=== PATIENT | male | born 1950 | race Caucasian/White ===

== ENCOUNTER → 2018-09-29 | Outpatient (CLI) | payer MEDICARE ==
--- NOTE | 2018-09-29 13:01 | BD ---
EXAMINATION TYPE: Axial Bone Density DATE OF EXAM: 09/29/2018 COMPARISON: NONE CLINICAL HISTORY: M [age] Height: 5 FT 5 1/2 IN Weight: 161 FRAX RISK QUESTIONS: RISK FACTORS HISTORY OF: Family History of Osteoporosis: YES Active: YES Lost more than 2 inches in height since high school: YES MEDICATIONS: Additional Medications: VICODIN,XANAX NEEDED, ALEVE Additional History: SEVERE SCOLIOSIS EXAM MEASUREMENTS: Bone mineral densitometry was performed using the [employer] System. Bone mineral density as measured about the Lumbar spine is: ----- L1-L4(G/cm2): 1.806 T Score Values are as follows: ----- L2: 3.2 ----- L3: 6.6 ----- L4: 7.2 ----- L1-L4: 5.2 BASELINE Bone mineral density about the R hip (g/cm2): 1.062 Bone mineral density about the L hip (g/cm2): 1.059 T Score values are as follows: -----R Neck: 0.2 -----L Neck: 0.2 -----R Total: 2.3 -----L Total: 2.1 BASELINE IMPRESSION: Normal (Values between +1 and -1 indicate normal bone mass). Consider repeating this study in 5 year s or sooner if there is some new clinical indication. NOTE: T-SCORE=SD OF THE YOUNG ADULT MEAN.
== END | disposition home or self-care (01) ==
LOC: RADBDWWP 10:39
PROVIDERS: ATTEND Family Medicine
DX: M89.9 Disorder of bone, unspecified (principal)
CPT/HCPCS: 77080

== ENCOUNTER 2019-10-24 09:55 | Emergency (ER) | payer MEDICARE ==
[2019-10-24 10:01] VITALS: TEMP 98.8
[2019-10-24 10:14] VITALS: RESP 18
--- NOTE | 2019-10-24 10:25 | ED ---
General Adult HPI <Rick Ceron - Last Filed: 10/24/19 12:15> - General Source: patient, RN notes reviewed, old records reviewed Mode of arrival: ambulatory Limitations: no limitations <DillonYojana - Last Filed: 10/24/19 12:29> - General Chief complaint: Shortness of Breath Stated complaint: SOB,sweating,shivers Time Seen by Provider: 10/24/19 10:04 - History of Present Illness Initial comments: Patient is a 69-year-old male who presents emergency department today for evaluation for concern for shortness of breath and more progressive over the past 2 days. Patient denies any associated chest pain. He states that he has a hard time laying flat without feeling very short of breath and states he feels better if he lays on his stomach or is up walking. Patient states that he has the prior history of smoking many years ago and quit over 30 years ago. He states that he has had no significant change in his bowel movements and reports an episode of nausea today. 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 He states he tries to her mask and protect from Covid 19 and notes that he has not been exposed to any positive covid 19 contacts that he is aware of with. Patient states that he's had no fevers associated with symptoms. Patient reportedly did a video conference with his PCP today who sent here for further evaluation to rule out pneumonia. Patient denies any recorded fevers but does have some sweating episodes and shivering. (Yojana Carranza) - Related Data Home Medications Medication Instructions Recorded Confirmed Ascorbic Acid [Vitamin C] 500 mg PO QID 09/05/14 10/24/19 Citalopram Hydrobromide 10 mg PO DAILY 10/24/19 10/24/19 [Citalopram HBr] Gabapentin 600 mg PO BID 10/24/19 10/24/19 Ibuprofen [Advil] 200 mg PO Q6HR PRN 10/24/19 10/24/19 Omeprazole [PriLOSEC] 20 mg PO HS 10/24/19 10/24/19 traZODone HCL 50 - 100 mg PO HS PRN 10/24/19 10/24/19 Allergies Allergy/AdvReac Type Severity Reaction Status Date / Time No Known Allergies Allergy Verified 10/24/19 11:15 Review of Systems ROS Other: All systems not noted in ROS Statement are negative. <Rick Ceron - Last Filed: 10/24/19 12:15> ROS Other: All systems not noted in ROS Statement are negative. <Yojana Carranza - Last Filed: 10/24/19 12:29> ROS Statement: Those systems with pertinent positive or pertinent negative responses have been documented in the HPI. Past Medical History Past Medical History: Hyperlipidemia, Hypertension, Osteoarthritis (OA) Additional Past Medical History / Comment(s): insomnia History of Any Multi-Drug Resistant Organisms: None Reported Additional Past Surgical History / Comment(s): left knee, Past Psychological History: No Psychological Hx Reported Smoking Status: Former smoker Past Alcohol Use History: None Reported Past Drug Use History: Marijuana <Yojana Carranza - Last Filed: 10/24/19 12:29> General Exam Limitations: no limitations General appearance: alert, in no apparent distress Head exam: Present: atraumatic Eye exam: Present: normal appearance, PERRL, EOMI. Absent: scleral icterus, conjunctival injection, periorbital swelling ENT exam: Present: normal exam, mucous membranes moist Neck exam: Present: normal inspection. Absent: tenderness, meningismus, lymphadenopathy Respiratory exam: Present: normal lung sounds bilaterally. Absent: respiratory distress, wheezes, rales, rhonchi, stridor Cardiovascular Exam: Present: regular rate, normal rhythm, normal heart sounds. Absent: systolic murmur, diastolic murmur, rubs, gallop, clicks GI/Abdominal exam: Present: soft, normal bowel sounds. Absent: distended, tenderness, guarding, rebound, rigid Extremities exam: Present: normal inspection, full ROM, normal capillary refill. Absent: tenderness, pedal edema, joint swelling, calf tenderness Back exam: Present: normal inspection Neurological exam: Present: alert, oriented X3, CN II-XII intact Psychiatric exam: Present: normal affect, normal mood Skin exam: Present: warm, dry, intact, normal color. Absent: rash <Yojana Carranza - Last Filed: 10/24/19 12:29> - General Exam Comments Initial Comments: 69-year-old male. history somewhat short of breath. (Yojana Carranza) Course <Rick Ceron - Last Filed: 10/24/19 12:15> Vital Signs 10/24/19 10/24/19 10/24/19 09:58 10:12 10:25 Temperature 98.8 F Pulse Rate 70 Respiratory 20 18 Rate Blood Pressure 168/89 O2 Sat by Pulse 97 98 Oximetry 10/24/19 10/24/19 10/24/19 11:52 12:07 12:16 Temperature Pulse Rate 61 58 L 64 Respiratory 18 Rate Blood Pressure 162/80 O2 Sat by Pulse 95 Oximetry - Reevaluation(s) Reevaluation #1: 10/24/19 12:15 I did evaluate this patient, with 3 days of dyspnea, rule out pneumonia, he states his symptoms have significantly improved. He is resting comfortably with stable vitals. His workup reveals normal CBC, normal CMP, negative troponin, negative d-dimer, negative BNP, chest x-ray clear. Patient is eager for discharge. (Rick Ceron) EKG Findings - EKG Comments: EKG Findings:: EKG shows normal sinus rhythm and normal EKG. Ventricular rate of 65 bpm. Vitals 150 ms. QRS duration is 102 ms. QT QTc 46/422 ms <Yojana Carranza - Last Filed: 10/24/19 12:29> Medical Decision Making - Lab Data Result diagrams: 10/24/19 10:41 10/24/19 10:41 <Rick Ceron - Last Filed: 10/24/19 12:15> - Lab Data Result diagrams: 10/24/19 10:41 10/24/19 10:41 <Yojana Carranza - Last Filed: 10/24/19 12:29> - Lab Data Lab Results 10/24/19 10/24/19 10/24/19 Range/Units 10:41 10:41 10:41 WBC 6.1 (3.8-10.6) k/uL RBC 4.37 (4.30-5.90) m/uL Hgb 13.7 (13.0-17.5) gm/dL Hct 40.8 (39.0-53.0) % MCV 93.5 (80.0-100.0) fL MCH 31.4 (25.0-35.0) pg MCHC 33.6 (31.0-37.0) g/dL RDW 12.6 (11.5-15.5) % Plt Count 214 (150-450) k/uL Neutrophils % 72 % Lymphocytes % 21 % Monocytes % 5 % Eosinophils % 1 % Basophils % 0 % Neutrophils # 4.4 (1.3-7.7) k/uL Lymphocytes # 1.3 (1.0-4.8) k/uL Monocytes # 0.3 (0-1.0) k/uL Eosinophils # 0.1 (0-0.7) k/uL Basophils # 0.0 (0-0.2) k/uL PT 10.2 (9.0-12.0) sec INR 1.0 (<1.2) APTT 24.6 (22.0-30.0) sec D-Dimer 0.48 (<0.60) mg/L FEU Sodium 136 L (137-145) mmol/L Potassium 3.9 (3.5-5.1) mmol/L Chloride 106 (98-107) mmol/L Carbon Dioxide 23 (22-30) mmol/L Anion Gap 7 mmol/L BUN 14 (9-20) mg/dL Creatinine 0.73 (0.66-1.25) mg/dL Est GFR (CKD-EPI)AfAm >90 (>60 ml/min/1.73 sqM) Est GFR (CKD-EPI)NonAf >90 (>60 ml/min/1.73 sqM) Glucose 112 H (74-99) mg/dL Plasma Lactic Acid Elfego (0.7-2.0) mmol/L Calcium 9.1 (8.4-10.2) mg/dL Magnesium 1.9 (1.6-2.3) mg/dL Total Bilirubin 0.5 (0.2-1.3) mg/dL AST 29 (17-59) U/L ALT 28 (4-49) U/L Alkaline Phosphatase 67 (38-126) U/L Lactate Dehydrogenase 546 (313-618) U/L Troponin I (0.000-0.034) ng/mL C-Reactive Protein <5.0 (<10.0) mg/L NT-Pro-B Natriuret Pep pg/mL Total Protein 6.5 (6.3-8.2) g/dL Albumin 4.1 (3.5-5.0) g/dL 10/24/19 10/24/19 10/24/19 Range/Units 10:41 10:41 10:41 WBC (3.8-10.6) k/uL RBC (4.30-5.90) m/uL Hgb (13.0-17.5) gm/dL Hct (39.0-53.0) % MCV (80.0-100.0) fL MCH (25.0-35.0) pg MCHC (31.0-37.0) g/dL RDW (11.5-15.5) % Plt Count (150-450) k/uL Neutrophils % % Lymphocytes % % Monocytes % % Eosinophils % % Basophils % % Neutrophils # (1.3-7.7) k/uL Lymphocytes # (1.0-4.8) k/uL Monocytes # (0-1.0) k/uL Eosinophils # (0-0.7) k/uL Basophils # (0-0.2) k/uL PT (9.0-12.0) sec INR (<1.2) APTT (22.0-30.0) sec D-Dimer (<0.60) mg/L FEU Sodium (137-145) mmol/L Potassium (3.5-5.1) mmol/L Chloride (98-107) mmol/L Carbon Dioxide (22-30) mmol/L Anion Gap mmol/L BUN (9-20) mg/dL Creatinine (0.66-1.25) mg/dL Est GFR (CKD-EPI)AfAm (>60 ml/min/1.73 sqM) Est GFR (CKD-EPI)NonAf (>60 ml/min/1.73 sqM) Glucose (74-99) mg/dL Plasma Lactic Acid Elfego 0.9 (0.7-2.0) mmol/L Calcium (8.4-10.2) mg/dL Magnesium (1.6-2.3) mg/dL Total Bilirubin (0.2-1.3) mg/dL AST (17-59) U/L ALT (4-49) U/L Alkaline Phosphatase (38-126) U/L Lactate Dehydrogenase (313-618) U/L Troponin I <0.012 (0.000-0.034) ng/mL C-Reactive Protein (<10.0) mg/L NT-Pro-B Natriuret Pep 314 pg/mL Total Protein (6.3-8.2) g/dL Albumin (3.5-5.0) g/dL Disposition <Rick Ceron - Last Filed: 10/24/19 12:15> Is patient prescribed a controlled substance at d/c from ED?: No Time of Disposition: 12:29 <Yojana Carranza - Last Filed: 10/24/19 12:29> Clinical Impression: Shortness of breath Disposition: HOME SELF-CARE Condition: Good Instructions (If sedation given, give patient instructions): Dyspnea (ED) Additional Instructions: Patient does have close follow-up with primary care physician within the next couple of days. Your coid swab will be resulted to you if positive within the next 1-2 days. Return to the emergency department if any alarming signs or symptoms occur. Referrals: Mayur Aguiar III, MD [Primary Care Provider] - 1-2 days
[2019-10-24 10:56] LABS: Basophils % (A) 0 %; Eosinophils # (A) 0.1 k/uL (0-0.7); Eosinophils % (A) 1 %; HCT 40.8 % (39.0-53.0); HGB 13.7 gm/dL (13.0-17.5); Lymphocytes # (A) 1.3 k/uL (1.0-4.8); Lymphocytes % (A) 21 %; MCH 31.4 pg (25.0-35.0); MCHC 33.6 g/dL (31.0-37.0); MCV 93.5 fL (80.0-100.0); Mean Platelet Volume 9.1; Monocytes # (A) 0.3 k/uL (0-1.0); Monocytes % (A) 5 %; Neutrophils # (A) 4.4 k/uL (1.3-7.7); Neutrophils % (A) 72 %; Platelet Count 214 k/uL (150-450); RBC 4.37 m/uL (4.30-5.90); RDW 12.6 % (11.5-15.5); WBC 6.1 k/uL (3.8-10.6)
--- NOTE | 2019-10-24 11:03 | XR ---
EXAMINATION TYPE: XR chest 2V DATE OF EXAM: 10/24/2019 COMPARISON: NONE HISTORY: Shortness of breath TECHNIQUE: Frontal and lateral views of the chest are obtained. FINDINGS: Scattered senescent parenchymal changes noted. Hyperinflation compatible with COPD. No evidence for infiltrate. No evidence for atelectasis. Heart size is stable. Mediastinal structures are stable and grossly unremarkable. No evidence for hilar prominence. Degenerative changes dorsal spine. IMPRESSION: 1. No evidence for acute pulmonary disease.
[2019-10-24 11:07] LABS: ALT 28 U/L (4-49); AST 29 U/L (17-59); African American GFR (CKD) >90 (>60 ml/min/1.73 sqM); Albumin 4.1 g/dL (3.5-5.0); Alkaline Phosphatase 67 U/L (38-126); Anion Gap 7 mmol/L; Blood Urea Nitrogen 14 mg/dL (9-20); C Reactive Protein <5.0 mg/L (<10.0); Calcium 9.1 mg/dL (8.4-10.2); Carbon Dioxide 23 mmol/L (22-30); Chloride 106 mmol/L (98-107); Glucose 112 mg/dL (74-99); LDH 546 U/L (313-618); Magnesium 1.9 mg/dL (1.6-2.3); Non-African American GFR(CKD) >90 (>60 ml/min/1.73 sqM); Potassium 3.9 mmol/L (3.5-5.1); Sodium 136 mmol/L (137-145); Total Bilirubin 0.5 mg/dL (0.2-1.3); Total Protein 6.5 g/dL (6.3-8.2)
[2019-10-24 11:11] LABS: D-Dimer 0.48 mg/L FEU (<0.60); Partial Thromboplastin Time 24.6 sec (22.0-30.0); Prothrombin Time 10.2 sec (9.0-12.0)
[2019-10-24] MEDS ORDERED: IPRATROPIUM-ALBUTEROL 3 ML NEB INHALATION STA (11:58)
[2019-10-24 13:20] VITALS: BP 163/70; PULSE 92
[2019-10-24 17:05] LABS: Ferritin 195.4 ng/mL (22.0-322.0)
== END 2019-10-24 13:20 | disposition home or self-care (01) ==
LOC: EC 09:55
DX: R06.02 Shortness of breath (principal); R61 Generalized hyperhidrosis; R11.0 Nausea; I10 Essential (primary) hypertension; Z79.899 Other long term (current) drug therapy; Z87.891 Personal history of nicotine dependence
CPT/HCPCS: 36415; 94640; 93005; 85379; 83880; 80053; 82728; 83605; 83615; 83735; 84484; 85025; 85610; 85730; 86140; 87040; 84145; 71046; 99285; U0003

== ENCOUNTER 2019-11-15 11:34 | Day surgery (SDC) | payer MEDICARE ==
[2019-11-09 13:39] VITALS: BMI 26.6
[~2019-11-15 11:34] MED LIST: LACTATED RINGERS 1,000 ML IV SCH; LIDOCAINE 1% (10MG/ML) FOR IV START INTRADERMA PRN; MOXIFLOXACIN HCL 0.5% DROPS 3 ML BTL OP ONE; TETRACAINE 0.5% OPHTH (PF) DROPS 4 ML BTL OP ONE; TIMOLOL 0.5% OPHTH DROPS 5 ML BTL OP ONE
[2019-11-15 11:49] VITALS: RESP 16; TEMP 97.4
[2019-11-15] MEDS: PHENYLEPHRINE 2.5% OPHTH DRP 2ML OP NR ×3 (11:55→12:07)
[2019-11-15] MEDS: CYCLOPENTOLATE 1% OPHTH SOLN 2 ML BTL OP ONE ×3 (11:58→12:10)
[2019-11-15] MEDS ORDERED: MIDAZOLAM 2 MG/2 ML VIAL ONE (12:33)
[2019-11-15] MEDS ORDERED: fentaNYL (PF) 50 MCG/ML 2 ML AMP ONE (12:33)
[2019-11-15] MEDS ORDERED: HYALURONATE SODIUM INTRAOCULAR 1 EACH SYRINGE (12MG/ML) INTRAOCULA ONE (12:52)
[2019-11-15] MEDS ORDERED: BALANCED SALT IRRIG SOLN COMB2 15 ML IRRIG.SOLN INTRAOCULA ONE (12:52)
[2019-11-15] MEDS ORDERED: LIDOCAINE 1% (PF) 10MG/ML VIAL SQ ONE (12:53)
[2019-11-15] MEDS ORDERED: EPINEPHrine (PF) 1 MG/ML AMP SQ ONE (12:53)
[2019-11-15] MEDS ORDERED: EPINEPHrine (PF) 0.3 ML in BALANCED SALT IRRIG SOLN COMB2 500 ML IRRIGATION ONE (12:54)
--- NOTE | 2019-11-15 13:06 | P.OP ---
Date of Procedure: 11/15/19 Preoperative Diagnosis: NS & CS Postoperative Diagnosis: same Procedure(s) Performed: PIOL, OD Implants: MX60 10.0 Anesthesia: MAC Surgeon: Amado Banda Pathology: none sent Condition: stable Disposition: same day Indications for Procedure: blurry vision Operative Findings: no complications
[2019-11-15 13:19] VITALS: BP 140/66; PULSE 56
--- NOTE | 2019-11-15 23:58 | OP ---
OPERATIVE REPORT DATE OF SURGERY: November 15, 2019 SURGEON: Dr. Amado Banda PREOPERATIVE DIAGNOSES: Nuclear sclerosis, cortical sclerosis, posterior subcapsular cataract. POSTOPERATIVE DIAGNOSIS: Nuclear sclerosis, cortical sclerosis, posterior subcapsular cataract. OPERATION: Phacoemulsification of cataract and intraocular lens implant of the right eye. ESTIMATED BLOOD LOSS: Zero. SPECIMEN TAKEN: None. NARRATIVE: After obtaining the appropriate consent, the patient was brought to the operating room where the patient was placed under cardiac monitoring and prepped and draped in the usual sterile manner. At the 11 o'clock position a 15 degree super sharp blade was used to create a paracentesis followed by instillation of 1% Xylocaine MPF 50:50 mix with BSS into the anterior chamber. This was followed by Amvisc to stabilize the anterior chamber. At the 9 o'clock position a self-sealing corneal flap incision was created using 2.8 mm reid keratome. A cystotome was used to initiate a continuous tear capsulorrhexis which was completed with the Utrata forceps. A Binkhorst cannula was used to hydrodissect the lens nucleus followed by hydrodelineation. Phacoemulsification of the lens was performed utilizing phaco chop in 16.16 seconds at 18% power. The remaining cortical material was removed using the irrigation aspiration mode followed by additional 1% Xylocaine MPF into the anterior chamber followed by viscoelastic to stabilize the capsular bag. A Bausch and Lomb MX60E 10.0 diopter posterior chamber lens was placed into the capsular bag without difficulty. The remaining viscoelastic material was removed from the anterior chamber with the irrigation/aspiration. Balanced salt solution was used to normalize the intraocular pressure. The incision was checked for watertight integrity. The patient then received two drops of 0.5% timolol followed by two drops Vigamox, was lightly patched and shielded in the usual manner. There were no complications from the procedure. The patient tolerated the procedure well and was returned to recovery in good condition. MMODL / IJN: [id number] /
== END 2019-11-15 13:37 | disposition home or self-care (01) ==
LOC: OR 11:34
PROVIDERS: ATTEND Ophthalmology
DX: H25.13 Age-related nuclear cataract, bilateral (principal); H25.041 Posterior subcapsular polar age-related cataract, right eye; H25.12 Age-related nuclear cataract, left eye; H25.013 Cortical age-related cataract, bilateral; H18.603 Keratoconus, unspecified, bilateral; H52.213 Irregular astigmatism, bilateral; H00.026 Hordeolum internum left eye, unspecified eyelid; H00.023 Hordeolum internum right eye, unspecified eyelid; H52.13 Myopia, bilateral; H52.4 Presbyopia; Z85.828 Personal history of other malignant neoplasm of skin; Z98.890 Other specified postprocedural states; M19.90 Unspecified osteoarthritis, unspecified site; K21.9 Gastro-esophageal reflux disease without esophagitis; F41.9 Anxiety disorder, unspecified; H93.19 Tinnitus, unspecified ear; R41.3 Other amnesia; Z82.61 Family history of arthritis; Z81.8 Family history of other mental and behavioral disorders; Z79.899 Other long term (current) drug therapy; Z79.1 Long term (current) use of non-steroidal anti-inflammatories (NSAID)
CPT/HCPCS: 66984; C1780; J2250; J0171; J3010; J2001

== ENCOUNTER 2019-11-29 07:57 | Emergency (ER) | payer MEDICARE ==
[2019-11-29] MEDS ORDERED: SODIUM CHLORIDE 0.9% 1,000 ML IV STA (08:04)
[2019-11-29] MEDS ORDERED: LORazepam 2 MG/ML INJ IV STA (08:05)
[2019-11-29 08:07] VITALS: RESP 18
--- NOTE | 2019-11-29 08:07 | ED ---
General Adult HPI - General Stated complaint: Nausea and vomiting Time Seen by Provider: 11/29/19 07:59 Source: patient, RN notes reviewed, old records reviewed - History of Present Illness Initial comments: This is a 69-year-old male who presents emergency department stating that he woke up at 4 AM very nauseated. Patient states she started vomiting at about 6:00 and then he called EMS to bring to the hospital. Patient denies any abdominal pain. Patient denies diarrhea. Patient denies any fever chills. Patient states he got Zofran in the ambulance but still has a little nausea remaining. According to EMS the patient was hyperventilating and very anxious. Patient continues to be very anxious and is still breathing slightly rapidly. Patient denies any chest pain difficulty breathing shortness of breath. Patient denies any dysuria hematuria urinary frequency. Patient denies any blood in the vomitus or stool. - Related Data Home Medications Medication Instructions Recorded Confirmed Ascorbic Acid [Vitamin C] 500 mg PO QID 09/05/14 11/15/19 Citalopram Hydrobromide 10 mg PO DAILY 10/24/19 11/15/19 [Citalopram HBr] Gabapentin 600 mg PO BID 10/24/19 11/15/19 Omeprazole [PriLOSEC] 20 mg PO HS 10/24/19 11/15/19 traZODone HCL 50 - 100 mg PO HS PRN 10/24/19 11/15/19 Allergies Allergy/AdvReac Type Severity Reaction Status Date / Time No Known Allergies Allergy Verified 11/15/19 11:46 Review of Systems ROS Statement: Those systems with pertinent positive or pertinent negative responses have been documented in the HPI. ROS Other: All systems not noted in ROS Statement are negative. Past Medical History Past Medical History: Hyperlipidemia, Osteoarthritis (OA) Additional Past Medical History / Comment(s): insomnia History of Any Multi-Drug Resistant Organisms: None Reported Past Surgical History: Orthopedic Surgery Additional Past Surgical History / Comment(s): bilateral ACL repair. left kidney removed and donated Past Anesthesia/Blood Transfusion Reactions: No Reported Reaction Smoking Status: Former smoker - Past Family History Mother Family Medical History: Osteoarthritis (OA), Rheumatoid Arthritis (RA) General Exam - General Exam Comments Initial Comments: GENERAL: Patient is well-developed and well-nourished. Patient is nontoxic and well- hydrated and is in mild distress. ENT: Neck is soft and supple. No significant lymphadenopathy is noted. Oropharynx is clear. Moist mucous membranes. Neck has full range of motion without eliciting any pain. EYES: The sclera were anicteric and conjunctiva were pink and moist. Extraocular movements were intact and pupils were equal round and reactive to light. Eyelids were unremarkable. PULMONARY: Unlabored respirations. Good breath sounds bilaterally. No audible rales rhonchi or wheezing was noted. CARDIOVASCULAR: There is a regular rate and rhythm without any murmurs gallops or rubs. ABDOMEN: Soft and nontender with normal bowel sounds. No palpable organomegaly was noted. There is no palpable pulsatile mass. SKIN: Skin is clear with no lesions or rashes and otherwise unremarkable. NEUROLOGIC: Patient is alert and oriented x3. Cranial nerves II through XII are grossly intact. Motor and sensory are also intact. Normal speech, volume and content. Symmetrical smile. MUSCULOSKELETAL: Normal extremities with adequate strength and full range of motion. No lower extremity swelling or edema. No calf tenderness. LYMPHATICS: No significant lymphadenopathy is noted PSYCHIATRIC: Patient is mildly anxious Course Vital Signs 11/29/19 11/29/19 11/29/19 08:02 08:07 09:07 Temperature 97.6 F Pulse Rate 60 61 Respiratory 18 18 18 Rate Blood Pressure 191/101 160/91 O2 Sat by Pulse 100 99 Oximetry 11/29/19 11/29/19 10:00 11:03 Temperature 97.7 F Pulse Rate 68 73 Respiratory 18 18 Rate Blood Pressure 161/73 153/82 O2 Sat by Pulse 98 98 Oximetry Medical Decision Making - Medical Decision Making I went back in the room to reevaluate the patient after received a liter of fluid. Patient stated he felt considerably better. Patient has no nausea at this time he denies any abdominal pain - Lab Data Result diagrams: 11/29/19 08:36 11/29/19 08:36 Lab Results 11/29/19 11/29/19 11/29/19 Range/Units 08:36 08:36 09:53 WBC 8.5 (3.8-10.6) k/uL RBC 4.38 (4.30-5.90) m/uL Hgb 13.7 (13.0-17.5) gm/dL Hct 41.4 (39.0-53.0) % MCV 94.4 (80.0-100.0) fL MCH 31.2 (25.0-35.0) pg MCHC 33.0 (31.0-37.0) g/dL RDW 12.9 (11.5-15.5) % Plt Count 187 (150-450) k/uL Neutrophils % 83 % Lymphocytes % 10 % Monocytes % 5 % Eosinophils % 1 % Basophils % 1 % Neutrophils # 7.1 (1.3-7.7) k/uL Lymphocytes # 0.8 L (1.0-4.8) k/uL Monocytes # 0.4 (0-1.0) k/uL Eosinophils # 0.0 (0-0.7) k/uL Basophils # 0.1 (0-0.2) k/uL Sodium 137 (137-145) mmol/L Potassium 4.2 (3.5-5.1) mmol/L Chloride 106 (98-107) mmol/L Carbon Dioxide 21 L (22-30) mmol/L Anion Gap 10 mmol/L BUN 19 (9-20) mg/dL Creatinine 0.81 (0.66-1.25) mg/dL Est GFR (CKD-EPI)AfAm >90 (>60 ml/min/1.73 sqM) Est GFR (CKD-EPI)NonAf 89 (>60 ml/min/1.73 sqM) Glucose 135 H (74-99) mg/dL Calcium 9.5 (8.4-10.2) mg/dL Total Bilirubin 0.9 (0.2-1.3) mg/dL AST 41 (17-59) U/L ALT 25 (4-49) U/L Alkaline Phosphatase 78 (38-126) U/L Total Protein 7.1 (6.3-8.2) g/dL Albumin 4.5 (3.5-5.0) g/dL Amylase 71 (30-110) U/L Lipase 43 (23-300) U/L Urine Color Yellow Urine Appearance Clear (Clear) Urine pH 8.0 (5.0-8.0) Ur Specific Stone 1.017 (1.001-1.035) Urine Protein Negative (Negative) Urine Glucose (UA) Negative (Negative) Urine Ketones 1+ H (Negative) Urine Blood Negative (Negative) Urine Nitrite Negative (Negative) Urine Bilirubin Negative (Negative) Urine Urobilinogen <2.0 (<2.0) mg/dL Ur Leukocyte Esterase Negative (Negative) Disposition Clinical Impression: Acute vomiting Disposition: HOME SELF-CARE Instructions (If sedation given, give patient instructions): Acute Nausea and Vomiting (ED) Is patient prescribed a controlled substance at d/c from ED?: No Referrals: Mayur Aguiar III, MD [Primary Care Provider] - 1-2 days Time of Disposition: 10:59
[2019-11-29 09:00] LABS: Basophils # (A) 0.1 k/uL (0-0.2); Basophils % (A) 1 %; Eosinophils % (A) 1 %; HCT 41.4 % (39.0-53.0); HGB 13.7 gm/dL (13.0-17.5); Lymphocytes # (A) 0.8 k/uL (1.0-4.8); Lymphocytes % (A) 10 %; MCH 31.2 pg (25.0-35.0); MCV 94.4 fL (80.0-100.0); Mean Platelet Volume 10.2; Monocytes # (A) 0.4 k/uL (0-1.0); Monocytes % (A) 5 %; Neutrophils # (A) 7.1 k/uL (1.3-7.7); Neutrophils % (A) 83 %; Platelet Count 187 k/uL (150-450); RBC 4.38 m/uL (4.30-5.90); RDW 12.9 % (11.5-15.5); WBC 8.5 k/uL (3.8-10.6)
[2019-11-29 09:10] LABS: ALT 25 U/L (4-49); AST 41 U/L (17-59); African American GFR (CKD) >90 (>60 ml/min/1.73 sqM); Albumin 4.5 g/dL (3.5-5.0); Alkaline Phosphatase 78 U/L (38-126); Amylase 71 U/L (30-110); Anion Gap 10 mmol/L; Blood Urea Nitrogen 19 mg/dL (9-20); Calcium 9.5 mg/dL (8.4-10.2); Carbon Dioxide 21 mmol/L (22-30); Chloride 106 mmol/L (98-107); Glucose 135 mg/dL (74-99); Non-African American GFR(CKD) 89 (>60 ml/min/1.73 sqM); Sodium 137 mmol/L (137-145); Total Bilirubin 0.9 mg/dL (0.2-1.3); Total Protein 7.1 g/dL (6.3-8.2)
[2019-11-29 09:11] LABS: Potassium 4.2 mmol/L (3.5-5.1)
[2019-11-29 10:43] LABS: Appearance,Urine Clear (Clear); Bilirubin,Urine Negative (Negative); Blood,Urine Negative (Negative); Color,Urine Yellow; Glucose,Urine (UA) Negative (Negative); Ketones,Urine 1+ (Negative); Leukocyte Esterase,Urine Negative (Negative); Nitrite,Urine Negative (Negative); Protein,Urine Negative (Negative); Specific Gravity,Urine 1.017 (1.001-1.035); Urobilinogen,Urine <2.0 mg/dL (<2.0)
[2019-11-29] MEDS ORDERED: ONDANSETRON 4 MG ODT STARTER PACK 2 TAB BTL PO STA (10:59)
[2019-11-29 11:04] VITALS: BP 153/82; PULSE 73; TEMP 97.7
== END 2019-11-29 11:09 | disposition home or self-care (01) ==
LOC: EC 07:57
DX: R11.10 Vomiting, unspecified (principal); Z79.899 Other long term (current) drug therapy; Z87.891 Personal history of nicotine dependence
CPT/HCPCS: 36415; 80053; 82150; 83690; 85025; 81003; 99284; 96374; J2060; S0119

== ENCOUNTER 2019-12-13 06:58 | Day surgery (SDC) | payer MEDICARE ==
[2019-12-12 10:31] VITALS: BMI 26.6
[~2019-12-13 06:58] MED LIST changes: +DEXAMETHASONE SOD PHOSPHATE 10 MG/ML 1 ML VIAL IV ONE; -LIDOCAINE 1% (10MG/ML) FOR IV START INTRADERMA PRN; +ONDANSETRON 4 MG/2 ML VIAL IVP ONE; +fentaNYL (PF) 50 MCG/ML 2 ML AMP IV PRN; +fentaNYL (PF) 50 MCG/ML 2 ML AMP IVP PRN
[2019-12-13 07:26] VITALS: TEMP 97.4
[2019-12-13] MEDS: CYCLOPENTOLATE 1% OPHTH SOLN 2 ML BTL OP ONE ×3 (07:35→07:51)
[2019-12-13] MEDS: PHENYLEPHRINE 2.5% OPHTH DRP 2ML OP NR ×3 (07:38→07:54)
[2019-12-13] MEDS ORDERED: MIDAZOLAM 2 MG/2 ML VIAL ONE (08:08)
[2019-12-13] MEDS ORDERED: fentaNYL (PF) 50 MCG/ML 2 ML AMP ONE (08:08)
[2019-12-13] MEDS ORDERED: EPINEPHrine (PF) 0.3 ML in BALANCED SALT IRRIG SOLN COMB2 500 ML IRRIGATION ONE (08:09)
[2019-12-13] MEDS ORDERED: LIDOCAINE 1% (PF) 10MG/ML VIAL MISCELLANE ONE (08:18)
[2019-12-13] MEDS ORDERED: HYALURONATE SODIUM INTRAOCULAR 1 EACH SYRINGE (12MG/ML) INTRAOCULA ONE (08:18)
[2019-12-13] MEDS ORDERED: BALANCED SALT IRRIG SOLN COMB2 15 ML IRRIG.SOLN INTRAOCULA ONE (08:18)
--- NOTE | 2019-12-13 08:35 | P.OP ---
Date of Procedure: 12/13/19 Preoperative Diagnosis: NS & CS Postoperative Diagnosis: same Procedure(s) Performed: PIOL, OS Implants: [id number] 8.0 Anesthesia: MAC Surgeon: Amado Banda Pathology: none sent Condition: stable Disposition: same day Indications for Procedure: blurry vision Operative Findings: no complications
[2019-12-13 08:51] VITALS: BP 152/80; PULSE 59; RESP 16
--- NOTE | 2019-12-13 23:16 | OP ---
OPERATIVE REPORT DATE OF SURGERY: 12/13/2019 PROCEDURE: Phacoemulsification of cataract with intraocular lens implant of the left eye. PREOPERATIVE DIAGNOSIS: Nuclear sclerosis and cortical sclerosis. POSTOPERATIVE DIAGNOSIS: Nuclear sclerosis, cortical sclerosis and persistent miosis suggestive of floppy iris. SURGEON: Dr. Amado Banda. ANESTHESIA: MAC. ESTIMATED BLOOD LOSS: None. SPECIMEN TAKEN: None. NARRATIVE: After obtaining the appropriate consent, the patient was brought to the operating room. There he was placed under cardiac monitoring and prepped and draped in the usual sterile manner. He was approached from his left temporal side, and at the 11 o'clock position an MVR blade was used to create a paracentesis port. Through this opening 1% Xylocaine MPF 50:50 mix with balanced salt solution was injected into the anterior chamber. This was followed by instillation of Amvisc. At the 9 o'clock position, a 2.5 mm keratome was used to create a self-sealing corneal flap incision. It was evident at this stage of the game that the pupil was not maintaining proper dilation and there was some indication of laxity of the iris stroma. Therefore a 7 mm Malyugin Ring was chosen and inserted on the pupillary margin. This was followed by a cystotome, which was used to begin a continuous tear capsulorrhexis which was then completed using the Utrata forceps. Hydrodissection and hydrodelineation of the lens was accomplished with balanced salt solution. Phacoemulsification lens utilizing phaco chop was accomplished in 15.44 seconds at 14% power. Additional Xylocaine MPF was instilled into the anterior chamber. This was followed by removal of the remaining cortex under irrigation and aspiration along with careful polishing of the posterior capsule in capsule vacuum mode. Additional Amvisc was then used to stabilize the capsular bag and a Bausch & Lomb Kevin 60E 8.00 diopter posterior chamber intraocular lens was then injected into the capsular bag without difficulty. The remaining viscoelastic was removed from in and around the intraocular lens followed by a small amount of viscoelastic to deepen the anterior chamber and allow for removal of the Malyugin Ring. Once this was accomplished, the remaining viscoelastic was removed from the anterior chamber without difficulty under irrigation and aspiration. The eye was then brought to normal intraocular pressure through the paracentesis port, confirming all incisions were watertight. He then received 2 drops of 0.5% Timolol followed by 2 drops of moxifloxacin. He was then lightly patched and shielded in the usual manner. There were no complications from the procedure. He tolerated the procedure well and was returned to [facility] in good condition. RAMON / AXEL: [id number] /
== END 2019-12-13 09:05 | disposition home or self-care (01) ==
LOC: OR 06:58
PROVIDERS: ATTEND Ophthalmology
DX: H25.12 Age-related nuclear cataract, left eye (principal); H25.012 Cortical age-related cataract, left eye; H18.603 Keratoconus, unspecified, bilateral; H00.026 Hordeolum internum left eye, unspecified eyelid; H00.023 Hordeolum internum right eye, unspecified eyelid; H52.13 Myopia, bilateral; H52.213 Irregular astigmatism, bilateral; H52.4 Presbyopia; Z98.41 Cataract extraction status, right eye; Z96.1 Presence of intraocular lens; K21.9 Gastro-esophageal reflux disease without esophagitis; F32.9 Major depressive disorder, single episode, unspecified; F41.9 Anxiety disorder, unspecified; H93.19 Tinnitus, unspecified ear; R41.3 Other amnesia; Z79.899 Other long term (current) drug therapy; Z90.5 Acquired absence of kidney; Z85.828 Personal history of other malignant neoplasm of skin; Z98.890 Other specified postprocedural states; Z97.3 Presence of spectacles and contact lenses; Z82.61 Family history of arthritis; Z81.8 Family history of other mental and behavioral disorders
CPT/HCPCS: 66982; C1780; J2250; J0171; J3010; J2001

== ENCOUNTER → 2020-05-10 | Outpatient (CLI) | payer MEDICARE ==
--- NOTE | 2020-05-11 04:24 | MR ---
EXAMINATION TYPE: MR cervical spine wo con DATE OF EXAM: 05/10/2020 COMPARISON: None HISTORY: Neck pain, BUE weakness Multiplanar multiecho imaging of the cervical spine was performed without contrast. Vertebra have normal alignment. There is degenerative disc space narrowing from C3 to C7. There is en dplate spur formation. There is significant narrowing of the spinal canal from C4 to C6. There is dm e flattening of the cord and the spinal canal measures 5 mm at C5-6. Spinal canal measures 8 mm at C3 -6-7. Spinal canal measures 5 mm at C4-5. The brainstem is intact. There is no compression fracture. There is no paraspinal mass. IMPRESSION: Multilevel spondylotic changes. There is moderately severe spinal stenosis at C4-5 and C5-6. No signi ficant edema seen in the cervical cord.
== END | disposition home or self-care (01) ==
LOC: RADMRIMAIN 21:13
PROVIDERS: ATTEND Orthopaedic Surgery Orthopaedic Surgery of the Spine
DX: M48.02 Spinal stenosis, cervical region (principal); M47.812 Spondylosis without myelopathy or radiculopathy, cervical region
CPT/HCPCS: 72141

== ENCOUNTER → 2020-09-02 | Outpatient (CLI) | payer MEDICARE ==
--- NOTE | 2020-09-03 07:19 | XR ---
EXAMINATION TYPE: XR cervical spine limited DATE OF EXAM: 09/02/2020 COMPARISON: MRI 05/10/2020 HISTORY: Postoperative cervical spine surgery TECHNIQUE: 4 view cervical spine FINDINGS: Vertebral body heights are preserved. There is straightening of the normal cervical lordosis. Posteri or fusion of C3-C5 is identified. The C screws may be extending into the C5-6 neural foramina. There is multilevel endplate sclerosis and osteophytosis with uncovertebral and facet arthropathy. No enlar gement of the prevertebral soft tissues. IMPRESSION: Posterior fusion of C4-C6 with multilevel disc disease and osteoarthritic changes of the cervical spi ne. The C5 screw tips may be extending into the neural foramina of C5-6. CT may be helpful for further ev aluation, if clinically warranted.
== END | disposition home or self-care (01) ==
LOC: RADXRMAIN 16:42
DX: M50.321 Other cervical disc degeneration at C4-C5 level (principal); M47.812 Spondylosis without myelopathy or radiculopathy, cervical region; Z98.1 Arthrodesis status
CPT/HCPCS: 72040

== ENCOUNTER → 2021-01-07 | Outpatient (CLI) | payer MEDICARE ==
--- NOTE | 2021-01-07 12:47 | US ---
EXAMINATION TYPE: US scrotum with doppler. DATE OF EXAM: 01/07/2021 COMPARISON: NONE CLINICAL HISTORY: 70-year-old male N50.89 other specified disorder of male,N53.11. TECHNIQUE: Grayscale and color Doppler Duplex imaging performed of the scrotum. FINDINGS: EXAM MEASUREMENTS: TESTICLES: Right Testicle: 4.9x3.2x2.8 cm Left Testicle: 5.3x3.2x2.7 cm Doppler performed to assess for testicular vascularity; good bilateral color flow and waveforms are s een. There is no evidence of testicular torsion. Normal homogeneous appearance of the testicles. No hyperemia. EPIDIDYMIS HEAD: Right Epididymis: 0.7 cm with an Epi body cyst 0.5x0.5x0.5cm Left Epididymis: 0.9 cm with an Epi head cyst 0.6x0.9x0.7cm Presence of hydroceles: No Presence of varicoceles: No IMPRESSION: A couple epididymal cysts measuring up to 9 mm on either side. Otherwise, unremarkable scrotal ultras ound.
== END | disposition home or self-care (01) ==
LOC: RADUSWWP 08:19
PROVIDERS: ATTEND Family Medicine
DX: N50.3 Cyst of epididymis (principal)
CPT/HCPCS: 76870; 93975

== ENCOUNTER 2021-09-05 07:49 | Day surgery (SDC) | payer MEDICARE ==
[2021-09-05] MEDS ORDERED: diazePAM 5 MG TAB PO PRN (08:35)
[2021-09-05 08:52] VITALS: TEMP 98.6
[2021-09-05 10:50] VITALS: RESP 16
[2021-09-05 11:41] VITALS: BP 145/76
[2021-09-05 12:04] VITALS: PULSE 48
--- NOTE | 2021-09-06 11:51 | FL ---
PROCEDURE: Lumbar puncture for cervical myelogram. DATE: 09/05/2021 CLINICAL HISTORY: 71-year-old male M25.511 PAIN RIGHT SHOULDER; M25.512 PAIN LEFT CRUZ COMPLICATIONS: Procedure discontinued due to vasovagal reaction. SEDATION: Oral Valium administered by nursing. The patient and the patient's vital signs were monitored by joanne perez independent radiology personnel. Patient was hypertensive at systolic 206 and reports a history of white coat syndrome. Patient was pl aced prone on the table and eventually dropped to 160's systolic. Decision was made to proceed with the procedure. TECHNIQUE: The procedure and potential risks were explained to patient and an informed consent was obtained with teach back. Site and side was verified. A time out was performed. The patient was placed prone on the fluoroscopy table and the L4-L5 level was localized and the skin was marked and was prepped and draped in the usual sterile fashion. Lidocaine was used for local anesthesia. Utilizing fluoroscopic guidance a 22-gauge spinal needle was placed through the skin and multiple attempts were made to access the subarachnoid space. The needle met bone at multiple trajectories and attempts at L4-L5. We then moved to the L5-S1 level but the patient became bradycardic into the 40s BPM and then blood p ressure began to decline. Patient began to experience nausea and had an episode of emesis into the bu cket. Procedure was immediately discontinued, a cool wet towel was placed, and patient's no signs beg an to improve. The patient was sent to the recovery room in satisfactory condition. Discharged in normal condition a fter 1 to 2 hours monitoring. The estimated blood loss was minimal. Fluoroscopy time: 49 seconds Total images: 3 IMPRESSION: Attempt at lumbar intrathecal access for cervical myelogram. After unsuccessful attempts at L4-L5 and then moving to L5-S1, procedure had to be discontinued due to complication with vasovagal reaction.
== END 2021-09-05 11:35 | disposition home or self-care (01) ==
LOC: RADPROMAIN 07:49
PROVIDERS: ATTEND Orthopaedic Surgery
DX: M25.511 Pain in right shoulder (principal); Z53.8 Procedure and treatment not carried out for other reasons; R03.0 Elevated blood-pressure reading, without diagnosis of hypertension; R00.1 Bradycardia, unspecified
CPT/HCPCS: 36415; 62302; Q9967

== ENCOUNTER → 2021-09-19 | Outpatient (CLI) | payer MEDICARE ==
--- NOTE | 2021-09-20 00:02 | MR ---
EXAMINATION TYPE: MR cervical spine wo con DATE OF EXAM: 09/19/2021 COMPARISON: 05/10/2020 HISTORY: Right shoulder/ arm pain and numbness. Multiplanar multiecho imaging of the lumbar spine with no contrast. There is metal artifact from multilevel posterior fusion surgery from C4 to C6. There is laminectomy defect. Detail limited slightly by metal artifact. There is no cervical paraspinal mass. There is deg enerative disc space narrowing throughout the cervical spine. No compression fracture. There is some posterior endplate spur formation at C4-5 and C5-C6 with mild encroachment on the spinal canal. There is adequate canal at this level due to the laminectomy defect. IMPRESSION: Multilevel laminectomy apparently from C4 to C6 with clearing of the severe spinal stenosis at C4-5 a nd C5-6 compared to old exam. No complicating process seen.
== END | disposition home or self-care (01) ==
LOC: RADMRIMAIN 20:56
PROVIDERS: ATTEND Orthopaedic Surgery
DX: M25.511 Pain in right shoulder (principal); M99.71 Connective tissue and disc stenosis of intervertebral foramina of cervical region
CPT/HCPCS: 72141

== ENCOUNTER → 2022-11-13 | Outpatient (CLI) | payer MEDICARE ==
--- NOTE | 2022-11-14 11:49 | MR ---
EXAMINATION TYPE: MR lumbar spine wo con DATE OF EXAM: 11/13/2022 4:31 PM COMPARISON: Radiograph 11/04/2013, CT 11/04/2013.. CLINICAL INDICATION: Male, 72 years old with history of M47.816 SPONDYLOSIS W/O MYELOPATHY OR; Low ba ck pain. TECHNIQUE: Multi planar, multi sequence imaging was performed utilizing: T1-weighted, T2-weighted, a nd turbo inversion recovery imaging of the lumbar spine. IV Contrast: None. FINDINGS: Alignment: The lumbar vertebral bodies have preserved heights. There is scoliosis alignment apex L2 o n the left. Cord: The conus medullaris and the distal spinal cord appear unremarkable with regards to their signa l intensity and morphology. Bones/Discs: Multilevel disc space narrowing, osteophyte formation, disc desiccation, facet joint art hropathy and Schmorl's nodes are present. T11-T12 facet joint arthropathy with large osteophytes which mildly narrows the spinal canal. Cord si gnal is maintained. There is moderate to severe left and mild right neural foraminal stenosis. 12-L1: Disc bulge and facet joint arthropathy without significant spinal canal stenosis. Moderate viky ateral neural foraminal stenosis. L1-L2: Scoliosis changes. There is mild spinal canal narrowing. Facet joint arthropathy with moderate to severe bilateral neural foraminal stenosis. Spinal canal is patent. L2-L3: Scoliosis with facet joint arthropathy cauda equina is displaced to the right. Moderate bilate ral neural foraminal stenosis. Spinal canal is patent. L3-L4: Scoliosis with facet joint arthropathy which displaces the cauda equina moderate to severe viky ateral neural foraminal stenosis. L4-L5: Facet joint arthropathy with sclerosis results in moderate spinal canal stenosis. There the ne rve roots are displaced to the right. Moderate to severe bilateral neural foraminal stenosis. L5-S1: Facet joint arthropathy is present there is suspected synovial cyst posterior to the thecal sa c at this level which on sagittal imaging appears to communicate with the right facet joint. The spin al canal is patent. There is mild to moderate right and moderate to severe left neural foraminal sten osis. Other findings: None. IMPRESSION: Moderate to severe Degeneration changes throughout the spine with scoliosis. Findings worse at: * L5-S1 Moderate to severe left neural foraminal stenosis. * L4-L5 Moderate to severe bilateral neural foraminal stenosis * L3-L4 moderate to severe bilateral neural foraminal stenosis.
== END | disposition home or self-care (01) ==
LOC: RADMRIMAIN 15:45
PROVIDERS: ATTEND Physical Medicine & Rehabilitation
DX: S22.080S Wedge compression fracture of T11-T12 vertebra, sequela (principal); M47.817 Spondylosis without myelopathy or radiculopathy, lumbosacral region; M51.37 Other intervertebral disc degeneration, lumbosacral region; M48.062 Spinal stenosis, lumbar region with neurogenic claudication; M41.26 Other idiopathic scoliosis, lumbar region; M16.0 Bilateral primary osteoarthritis of hip; M99.73 Connective tissue and disc stenosis of intervertebral foramina of lumbar region; X58.XXXS Exposure to other specified factors, sequela
CPT/HCPCS: 72148

== ENCOUNTER → 2023-05-13 | Outpatient (CLI) | payer MEDICARE ==
--- NOTE | 2023-05-13 20:55 | BD ---
EXAMINATION TYPE: Axial Bone Density DATE OF EXAM: 05/13/2023 CLINICAL HISTORY: 73 years old Male. ICD-10 CODE: M85.8 OTH DISRD OF BONE DENSITY AND STRUCTURE, UNS Height: 65 Weight: 160 FRAX RISK QUESTIONS: Alcohol (3 or more units per day): no Family History (Parent hip fracture): no Glucocorticoids (More than 3mos): no (Ex: prednisone, prednisolone, methylprednisolone, dexamethasone, and hydrocortisone). History of Fracture in Adulthood: no Secondary Osteoporosis: 1. Type 1 Diabetes: no 2. Hyperthyroidism: no 4. Malnutrition: no 5. Chronic liver disease: no Rheumatoid Arthritis: no Current Tobacco Use: no RISK FACTORS HISTORY OF: Surgery to Spine/Hip(right/left)/Wrist (right/left): c spine EXAM MEASUREMENTS: Bone mineral densitometry was performed using the [employer] System. Bone mineral density as measured about the Lumbar spine is: ----- L1-L4(G/cm2): 1.660 T Score Values are as follows: ----- L1: 3.7 ----- L2: 2.8 ----- L3: 4.2 ----- L4: 5.5 ----- L1-L4: 4.0 Z Score Values are as follows: ----- L1: 4.3 ----- L2: 3.3 ----- L3: 4.6 ----- L4: 6.0 ----- L1-L4: 4.5 Bone mineral density has: decreased -8.1 % since study of: 09.29.2018 Bone mineral density about the R hip (g/cm2): 1.190 Bone mineral density about the L hip (g/cm2): 1.186 T Score values are as follows: -----R Neck: -0.6 -----L Neck: -0.5 -----R Total: 1.4 -----L Total: 1.4 Z Score values are as follows: -----R Neck: 0.6 -----L Neck: 0.7 -----R Total: 1.6 -----L Total: 1.6 Bone mineral density has: decreased -7.6 % since study of: 09.29.2018 FRAX%s: The graph provided illustrates a 5.8% chance for a major osteoporotic fx and a 1.4% chance fo r the hips probability for fx in 10 years time. IMPRESSION: Normal (Values between +1 and -1 indicate normal bone mass). Consider repeating this study in 5 year s or sooner if there is some new clinical indication. NOTE: T-SCORE=SD OF THE YOUNG ADULT MEAN.
== END | disposition home or self-care (01) ==
LOC: RADBDWWP 13:35
PROVIDERS: ATTEND Family Medicine
DX: M85.80 Other specified disorders of bone density and structure, unspecified site (principal)
CPT/HCPCS: 77080

== ENCOUNTER 2024-05-19 16:55 | Inpatient (IN) | payer MEDICARE ==
[2024-05-19 17:01] LABS: Glucose,Whole Blood 117 mg/dL (70-110)
--- NOTE | 2024-05-19 17:15 | ED ---
General Adult HPI - General Chief complaint: Neuro Symptoms/Deficit Stated complaint: Vomiting Time Seen by Provider: 05/19/24 17:05 Source: patient Mode of arrival: ambulatory Limitations: no limitations - History of Present Illness Initial comments: Dictation was produced using [employer] dictation software. please excuse any grammatical, word or spelling errors. Chief Complaint: 74-year-old male presents to the emergency department for dehydration History of Present Illness: Patient 74-year-old male states that he is here for dehydration. Patient has been throwing up bilious contents since last night. called patient's primary care doctor and he was told to come to the ER for further evaluation. states that patient's speech has seemed significantly off today. Furthermore he seemed a little confused. states that he was fine yesterday. No history of stroke. Patient denies any numbness tingling paresthesias to the arms or legs. The ROS documented in this emergency department record has been reviewed and confirmed by me. Those systems with pertinent positive or negative responses have been documented in the HPI. All other systems are other negative and/or noncontributory. - Related Data Home Medications Medication Instructions Recorded Confirmed Gabapentin 600 mg PO TID PRN 10/24/19 05/19/24 HYDROcodone/APAP 10-325MG [[place] 1 tab PO TID PRN 08/25/21 05/19/24 10-325] Zolpidem [Ambien] 10 mg PO HS PRN 08/25/21 05/19/24 tadalafiL [Cialis] 20 mg PO DAILY PRN 08/25/21 05/19/24 Allergies Allergy/AdvReac Type Severity Reaction Status Date / Time No Known Allergies Allergy Verified 05/19/24 20:01 Review of Systems ROS Statement: Those systems with pertinent positive or pertinent negative responses have been documented in the HPI. ROS Other: All systems not noted in ROS Statement are negative. Past Medical History Past Medical History: Hyperlipidemia, Osteoarthritis (OA) Additional Past Medical History / Comment(s): insomnia, neck pain, donated left kidney 2003. History of Any Multi-Drug Resistant Organisms: None Reported Past Surgical History: Orthopedic Surgery Additional Past Surgical History / Comment(s): bilateral ACL repair. left kidney removed and donated, cervical spine surgery Past Anesthesia/Blood Transfusion Reactions: No Reported Reaction Past Psychological History: Anxiety Smoking Status: Former smoker Past Alcohol Use History: None Reported Past Drug Use History: Marijuana - Past Family History Mother Family Medical History: Osteoarthritis (OA) Sister(s) Family Medical History: Cancer General Exam - General Exam Comments Initial Comments: PHYSICAL EXAM: General Impression: Alert and oriented x3, not in acute distress HEENT: Normocephalic atraumatic, extra-ocular movements intact, pupils equal and reactive to light bilaterally, mucous membranes moist. Cardiovascular: Heart regular rate and rhythm Chest: Able to complete full sentences, no retractions, no tachypnea Abdomen: abdomen soft, non-tender, non-distended, no organomegaly Musculoskeletal: Pulses present and equal in all extremities, no peripheral edema Motor: no focal deficits noted Neurological: CN II-XII grossly intact, no focal motor or sensory deficits noted, slightly aphasic, slightly dysarthric Skin: Intact with no visualized rashes Psych: Normal affect and mood Limitations: no limitations Course Vital Signs 05/19/24 05/19/24 05/19/24 16:56 17:39 17:55 Temperature 97.2 F L Pulse Rate 58 L 65 84 Respiratory 20 18 20 Rate Blood Pressure 192/90 187/96 186/93 O2 Sat by Pulse 98 100 99 Oximetry 05/19/24 05/19/24 05/19/24 18:10 18:25 18:40 Temperature Pulse Rate 87 84 87 Respiratory 20 20 20 Rate Blood Pressure 178/97 181/92 177/96 O2 Sat by Pulse 98 98 99 Oximetry 05/19/24 05/19/24 18:55 19:25 Temperature Pulse Rate 82 80 Respiratory 20 22 Rate Blood Pressure 175/93 180/99 O2 Sat by Pulse 98 97 Oximetry - Reevaluation(s) Reevaluation #1: 05/19/24 17:14 Patient rushed to the back after nurse was concerned about CVA. Last known normal was yesterday. Outside the window for thrombolytics. Code stroke paged however. NIH score of 12 EKG Findings - EKG Comments: EKG Findings:: My EKG interpretation: Ventricular rate 70, sinus rhythm,. 158, QRS 108, QTc 396. No RI prolongation, no QTC prolongation, no ST or T-wave changes noted. Overall, this EKG is unremarkable Medical Decision Making - Medical Decision Making Was pt. sent in by a medical professional or institution (Dr., PA, OPHTHALMIC ASST, urgent care, hospital, or retirement...) When possible be specific @ -No Did you speak to anyone other than the patient for history (EMS, parent, family, police, friend...)? What history was obtained from this source @ -No Did you review nursing and triage notes (agree or disagree)? Why? @ -I reviewed and agree with nursing and triage notes Were old charts reviewed (outside hosp., previous admission, EMS record, old EKG, old radiological studies, urgent care reports/EKG's, retirement records)? Report findings @ -No old charts were reviewed Differential Diagnosis (chest pain, altered mental status, abdominal pain women, abdominal pain men, vaginal bleeding, musculoskeletal, weakness, fever, dyspnea, syncope, headache, dizziness, GI bleed, back pain, seizure, CVA, palpatations, mental health)? @ - Differential CVA: Ischemic stroke, hemorrhagic stroke, brain tumor, atypical migraine, Wernicke's encephalopathy, seizure, multiple sclerosis, meningitis, encephalitis, hypoglyc emia, Guillain-Lee, electrolytes disturbance, myasthenia gravis.... This is not meant to be an all-inclusive list EKG interpreted by me (3pts min.). @ -See above X-rays interpreted by me (1pt min.). @ -Chest x-ray shows no acute processes CT interpreted by me (1pt min.). @ -CT brain shows no acute processes. CT angiography shows no acute processes. U/S interpreted by me (1pt. min.). @ -None done What testing was considered but not performed or refused? (CT, X-rays, U/S, labs)? Why? @ -None What meds were considered but not given or refused? Why? @ -None Was smoking cessation discussed for >3mins.? @ -No Were there social determinants of health that impacted care today? How? (Homele ssness, low income, unemployed, alcoholism, drug addiction, transportation, low edu. Level, literacy, decrease access to med. care, prison, rehab)? @ -No Was there de-escalation of care discussed even if they declined (Discuss DNR or withdrawal of care, Hospice)? DNR status @ -No What co-morbidities impacted this encounter? (DM, HTN, Smoking, COPD, CAD, Cancer, CVA, ARF, Chemo, Hep., AIDS, mental health diagnosis, sleep apnea, morbid obesity)? @ -None Was patient admitted / discharged? Hospital course, mention meds given and route, prescriptions, significant lab abnormalities, going to OR and other pertinent info. @ -74-year-old male came to the emergency department for primarily dehydration and intractable vomiting vital signs upon arrival are within acceptable limits. Patient had strokelike symptoms upon evaluation. Last normal was last night. Patient not a candidate for thrombolytics. Code stroke paged. CT angiography shows no large vessel occlusion. Laboratory evaluation is unremarkable. Imaging studies are negative. Patient still nauseated at the bedside still slightly aphasic and dysarthric. Patient given aspirin will be admitted with consultation to neurology. And symptom control. Did you discuss the management of the patient with other professionals (professionals i.e. , PA, OPHTHALMIC ASST, lab, RT, psych nurse, social scientist, social work faculty member, teacher, licensed loan officer assistant, rn case manager hospice)? Give summary @ -Discussed with hospitalist for admission Was critical care preformed (if so, how long)? @ -Yes, 33 minutes for code stroke Undiagnosed new problem with uncertain prognosis? @ -No Drug Therapy requiring intensive monitoring for toxicity (Heparin, Nitro, Insulin, Cardizem)? @ -No Were any procedures done? @ -No Diagnosis/symptom? Acute, or Chronic, or Acute on Chronic? Uncomplicated (without systemic symptoms) or Complicated (systemic symptoms)? @ -Gastroenteritis, code stroke Side effects of treatment? @ -No Exacerbation, Progression, or Severe Exacerbation? @ -No Poses a threat to life or bodily function? How? (Chest pain, USA, HI, pneumonia, PE, COPD, DKA, ARF, appy, cholecystitis, CVA, Diverticulitis, Homicidal, Suicidal, threat to staff... and all critical care pts) @ -yes - Lab Data Result diagrams: 05/19/24 17:11 05/19/24 17:11 Lab Results 05/19/24 05/19/24 05/19/24 Range/Units 16:59 17:11 17:11 WBC 8.0 (3.8-10.6) k/uL RBC 5.02 (4.30-5.90) m/uL Hgb 15.3 (13.0-17.5) gm/dL Hct 46.5 (39.0-53.0) % MCV 92.6 (80.0-100.0) fL MCH 30.5 (25.0-35.0) pg MCHC 33.0 (31.0-37.0) g/dL RDW 13.6 (11.5-15.5) % Plt Count 224 (150-450) k/uL MPV 10.0 Neutrophils % 76 % Lymphocytes % 18 % Monocytes % 4 % Eosinophils % 1 % Basophils % 0 % Neutrophils # 6.0 (1.3-7.7) k/uL Lymphocytes # 1.5 (1.0-4.8) k/uL Monocytes # 0.3 (0-1.0) k/uL Eosinophils # 0.1 (0-0.7) k/uL Basophils # 0.0 (0-0.2) k/uL PT 10.2 (10.0-12.5) sec INR 0.9 (<1.2) APTT 23.4 (22.0-30.0) sec Sodium (137-145) mmol/L Potassium (3.5-5.1) mmol/L Chloride (98-107) mmol/L Carbon Dioxide (22-30) mmol/L Anion Gap mmol/L BUN (9-20) mg/dL Creatinine (0.66-1.25) mg/dL Est GFR (CKD-EPI)AfAm (>60 ml/min/1.73 sqM) Est GFR (CKD-EPI)NonAf (>60 ml/min/1.73 sqM) Glucose (74-99) mg/dL POC Glucose (mg/dL) 117 H (70-110) mg/dL POC Glu Sheet Metal Worker Helper ID [employer] Calcium (8.4-10.2) mg/dL Total Bilirubin (0.2-1.3) mg/dL AST (17-59) U/L ALT (4-49) U/L Alkaline Phosphatase (38-126) U/L Creatine Kinase (55-170) U/L Troponin I (0.000-0.034) ng/mL Total Protein (6.3-8.2) g/dL Albumin (3.5-5.0) g/dL Influenza Type A (PCR) (Not Detectd) Influenza Type B (PCR) (Not Detectd) RSV (PCR) (Not Detectd) SARS-CoV-2 (PCR) (Not Detectd) 05/19/24 05/19/24 05/19/24 Range/Units 17:11 17:11 17:24 WBC (3.8-10.6) k/uL RBC (4.30-5.90) m/uL Hgb (13.0-17.5) gm/dL Hct (39.0-53.0) % MCV (80.0-100.0) fL MCH (25.0-35.0) pg MCHC (31.0-37.0) g/dL RDW (11.5-15.5) % Plt Count (150-450) k/uL MPV Neutrophils % % Lymphocytes % % Monocytes % % Eosinophils % % Basophils % % Neutrophils # (1.3-7.7) k/uL Lymphocytes # (1.0-4.8) k/uL Monocytes # (0-1.0) k/uL Eosinophils # (0-0.7) k/uL Basophils # (0-0.2) k/uL PT (10.0-12.5) sec INR (<1.2) APTT (22.0-30.0) sec Sodium 138 (137-145) mmol/L Potassium 3.8 (3.5-5.1) mmol/L Chloride 104 (98-107) mmol/L Carbon Dioxide 20 L (22-30) mmol/L Anion Gap 14 mmol/L BUN 15 (9-20) mg/dL Creatinine 0.70 (0.66-1.25) mg/dL Est GFR (CKD-EPI)AfAm >90 (>60 ml/min/1.73 sqM) Est GFR (CKD-EPI)NonAf >90 (>60 ml/min/1.73 sqM) Glucose 116 H (74-99) mg/dL POC Glucose (mg/dL) (70-110) mg/dL POC Glu Sheet Metal Worker Helper ID Calcium 9.8 (8.4-10.2) mg/dL Total Bilirubin 0.9 (0.2-1.3) mg/dL AST 21 (17-59) U/L ALT 14 (4-49) U/L Alkaline Phosphatase 69 (38-126) U/L Creatine Kinase 140 (55-170) U/L Troponin I <0.012 (0.000-0.034) ng/mL Total Protein 7.3 (6.3-8.2) g/dL Albumin 4.7 (3.5-5.0) g/dL Influenza Type A (PCR) Not Detected (Not Detectd) Influenza Type B (PCR) Not Detected (Not Detectd) RSV (PCR) Not Detected (Not Detectd) SARS-CoV-2 (PCR) Not Detected (Not Detectd) Disposition Clinical Impression: Stroke, Gastroenteritis Disposition: ADMITTED IP TO THIS [facility] Condition: Fair Referrals: Robert Anderson MD [Primary Care Provider] - 1-2 days Decision Time: 20:12
[2024-05-19 17:31] LABS: Basophils % (A) 0 %; Eosinophils # (A) 0.1 k/uL (0-0.7); Eosinophils % (A) 1 %; HCT 46.5 % (39.0-53.0); HGB 15.3 gm/dL (13.0-17.5); Lymphocytes # (A) 1.5 k/uL (1.0-4.8); Lymphocytes % (A) 18 %; MCH 30.5 pg (25.0-35.0); MCV 92.6 fL (80.0-100.0); Monocytes # (A) 0.3 k/uL (0-1.0); Monocytes % (A) 4 %; Neutrophils % (A) 76 %; Platelet Count 224 k/uL (150-450); RBC 5.02 m/uL (4.30-5.90); RDW 13.6 % (11.5-15.5)
--- NOTE | 2024-05-19 17:32 | CT ---
EXAMINATION TYPE: CT brain wo con CT DLP: 1100.6 mGycm, Automated exposure control for dose reduction was used. DATE OF EXAM: 05/19/2024 5:26 PM COMPARISON: None. CLINICAL INDICATION:Male, 74 years old with history of Neuro deficit, acute, stroke suspected, Code s troke. Expressive aphasia. TECHNIQUE: Brain: Multiple axial CT images of the brain were obtained without IV contrast. . Coronal and sagitta l reformats reviewed. FINDINGS: Brain: Extra-axial spaces: No abnormal extra-axial fluid collections. Ventricular system: Within normal limits Cerebral parenchyma: Age-appropriate cerebral volume loss. No acute intraparenchymal hemorrhage or ma ss effect. The lloyd-white junction is well differentiated. Scattered hypoattenuating areas are seen within the periventricular white matter. Cerebellum: Unremarkable. Mass effect: No evidence of midline shift. Intracranial vasculature: Atherosclerotic calcifications of the intracranial vessels. Soft tissues: Normal. Calvarium/osseous structures: No depressed skull fracture. Paranasal sinuses and mastoid air cells: The left mastoid air cells are clear. Partial opacification of the inferior right mastoid air cells. The paranasal sinuses are clear. Visualized orbits: Bilateral aphakia IMPRESSION: 1. No acute intracranial process. 2. Nonspecific white matter changes, likely secondary to chronic small vessel ischemic disease. 3. Trace right mastoid effusion. Findings called to discuss with Dr. Moncho Beckman at 5:30 PM on 05/19/2024. [facility], , 05/19/2024 5:30 PM
[2024-05-19 17:35] LABS: INR 0.9 (<1.2); Partial Thromboplastin Time 23.4 sec (22.0-30.0); Prothrombin Time 10.2 sec (10.0-12.5)
--- NOTE | 2024-05-19 17:40 | CT ---
EXAMINATION TYPE: CT angio head neck CT DLP: 495.3 mGycm, Automated exposure control for dose reduction was used. DATE OF EXAM: 05/19/2024 5:31 PM COMPARISON: CT brain of the same date. CLINICAL INDICATION:Male, 74 years old with history of Neuro deficit, acute, stroke suspected; PHH, C ode stroke. Expressive aphasia. TECHNIQUE: Axially acquired helical CT angiogram of the head and neck was obtained with contrast util izing 75 cc of Isovue-370 administered intravenously. Axial images are supplemented with 3D reconstru ctions which were post-processed at an independent workstation. NASCET criteria used. FINDINGS: CTA HEAD: No evidence of acute intracranial hemorrhage, mass effect, or midline shift. The ventricles, sulci, a nd cisterns are unremarkable. The visualized portions of the internal carotid arteries, middle cerebral arteries, anterior cerebral arteries, and posterior cerebral arteries are patent. Hypoplastic left posterior communicating arter y. The basilar and vertebral arteries are patent. CTA NECK: Right Carotid System: The common carotid artery and external carotid artery are patent. Minimal calcified plaque at the car otid bifurcation. The carotid bifurcation demonstrates no evidence of hemodynamically significant dexter nosis. The remaining portions of the internal carotid artery demonstrate normal size without signific ant narrowing. Left Carotid System: The common carotid artery and external carotid artery are patent. Minimal calcified plaque at the car otid bifurcation. The carotid bifurcation demonstrates no evidence of hemodynamically significant dexter nosis. The remaining portions of the internal carotid artery demonstrate normal size without signific ant narrowing. Vertebral arteries are patent without evidence hemodynamically significant stenosis. There is a three-vessel aortic arch. The origins of the great vessels are patent. No evidence of hemo dynamically significant stenosis. Post surgical changes from posterior cervical decompression at C4-C6. Multilevel degenerative disc di sease. IMPRESSION: 1. No evidence of dissection of the cervical internal carotid arteries or vertebral arteries or any e vidence of significant stenosis at the carotid bifurcations. 2. No evidence of high-grade stenosis or intracranial aneurysm. [facility], , 05/19/2024 5:38 PM
[2024-05-19 17:42] LABS: ALT 14 U/L (4-49); AST 21 U/L (17-59); African American GFR (CKD) >90 (>60 ml/min/1.73 sqM); Albumin 4.7 g/dL (3.5-5.0); Alkaline Phosphatase 69 U/L (38-126); Anion Gap 14 mmol/L; Blood Urea Nitrogen 15 mg/dL (9-20); Calcium 9.8 mg/dL (8.4-10.2); Carbon Dioxide 20 mmol/L (22-30); Chloride 104 mmol/L (98-107); Creatine Kinase 140 U/L (55-170); Glucose 116 mg/dL (74-99); Non-African American GFR(CKD) >90 (>60 ml/min/1.73 sqM); Potassium 3.8 mmol/L (3.5-5.1); Sodium 138 mmol/L (137-145); Total Bilirubin 0.9 mg/dL (0.2-1.3); Total Protein 7.3 g/dL (6.3-8.2)
[2024-05-19 18:09] LABS: Influenza A Not Detected (Not Detectd); Influenza B Not Detected (Not Detectd); RSV Not Detected (Not Detectd)
[2024-05-19] MEDS: SODIUM CHLORIDE 0.9% 1,000 ML IV STA (18:43)
--- NOTE | 2024-05-19 19:17 | XR ---
EXAMINATION TYPE: XR chest 2V DATE OF EXAM: 05/19/2024 7:06 PM COMPARISON: Chest radiographs from 10/24/2019 CLINICAL INDICATION: Male, 74 years old with history of altered mental status; [facility] TECHNIQUE: XR chest 2V Frontal and lateral views of the chest. FINDINGS: Lungs/Pleura: There is no evidence of pleural effusion, focal consolidation, or pneumothorax. Pulmonary vascularity: Unremarkable. Heart/mediastinum: Cardiomediastinal silhouette is unremarkable. Musculoskeletal: No acute osseous pathology. IMPRESSION: No acute cardiopulmonary disease/process. [facility], , 05/19/2024 7:14 PM
[2024-05-19] MEDS: ONDANSETRON 4 MG/2 ML VIAL IVP STA (19:36)
[2024-05-19] MEDS ORDERED: NALOXONE 0.4 MG/ML 1 ML VIAL IV PRN (20:07)
[2024-05-19] MEDS ORDERED: ACETAMINOPHEN TAB 325 MG TAB PO PRN (20:07)
[2024-05-19] MEDS: ASPIRIN 81 MG PO STA (20:31)
[2024-05-19] MEDS: SODIUM CHLORIDE 0.9% 1,000 ML IV SCH (20:32)
[2024-05-19] MEDS: LORazepam 2 MG/ML INJ IV STA (20:33)
[2024-05-19] MEDS: ONDANSETRON 4 MG/2 ML VIAL IVP PRN (22:15)
[2024-05-20] MEDS: LORazepam 2 MG/ML INJ IV STA (02:54)
[2024-05-20] MEDS: ASPIRIN 81 MG PO SCH (12:40)
--- NOTE | 2024-05-20 13:29 | P.CNNES ---
History of Present Illness Consult date: 05/20/24 Requesting physician: Moncho Beckman Reason for Consult: Code stroke History of Present Illness: Patient is a 74-year-old right-handed male came to the hospital yesterday at 4:55 PM, came to the hospital because of vomiting, diarrhea, dehydration and then episode of difficulty with speaking. Patient's was also present and both of them provided with a history. Patient started having vomiting late mor mahendra yesterday, and had 3 episodes of vomiting. He also has been having diarrhea for 2 days. It was watery diarrhea. There was no fever or abdominal pain or abnormal cramps. Patient's believes that he got dehydrated and then he became confused, he could not put together proper sentence, could not find the right word. He was not making sense at times. She asking where his phone was, and he pointed to the eyeglasses. There was no slurred speech, just could not put words together. There was no facial droop or problems with vision, no numbness, tingling focal weakness This episode lasted for about an hour although she believes that he is still not back to normal yet. No previous history of strokes or TIA. Patient's believes that he does not drink a lot of fluids. Vital signs on arrival blood pressure 192/90, pulse rate 58 temperature 97.2. Blood pressure has been maintaining high. Blood test shows normal CBC PT PTT, normal CMP, troponin. Influenza, RSV and coronavirus PCR negative. EKG showed sinus rhythm. CT head showed no acute intracranial process. Nonspecific white matter changes, likely secondary to chronic small vessel ischemic disease. Chest x-ray showed no acute cardiopulmonary process. Patient's mentioned that patient has some word finding difficulty, in which she has to fill in his words in sentences during speaking off and on for last 6 months to a year. She also believes that he has short-term memory problem, but his long-term memory is fine. She would ask him to get something from downstairs or get something from groceries and he would completely forget. Patient himself completely declines any memory loss or word finding problem. He had undergone memory testing "20 point test", in which he passed about 9 months ago. Patient's is concerned because patient's father who at age 80 had Alzheimer's dementia several years before he . He was at the point that he was in [facility]. Home medications clued [facility], Ambien and gabapentin, Cialis. Patient does not take any antiplatelet medication. He smokes marijuana occasionally, and the last use was just yesterday. Denies any tobacco use, drinks alcohol very rarely. Denies any hypertension or diabetes. Patient states that he had an episode of vomiting before in the past, about a year ago, and they called fire department and it was felt that he had panic attacks. Patient has history of severe cervical spinal canal stenosis at C4-5 and C5-6. He has chronic back pain for a very long time. He had undergone cervical spine decompressive surgery 7 years ago. He does not have a pacemaker. Review of Systems All pertinent positive and negative review of systems mentioned in the HPI. Otherwise unremarkable. Past Medical History Past Medical History: Hyperlipidemia, Osteoarthritis (OA) Additional Past Medical History / Comment(s): insomnia, neck pain, donated left kidney 2003. History of Any Multi-Drug Resistant Organisms: None Reported Past Surgical History: Orthopedic Surgery Additional Past Surgical History / Comment(s): bilateral ACL repair. left kidney removed and donated, cervical spine surgery Past Anesthesia/Blood Transfusion Reactions: No Reported Reaction Past Psychological History: Anxiety Smoking Status: Former smoker Past Alcohol Use History: None Reported Past Drug Use History: Marijuana - Past Family History Mother Family Medical History: Osteoarthritis (OA) Sister(s) Family Medical History: Cancer Medications and Allergies Home Medications Medication Instructions Recorded Confirmed Type Gabapentin 600 mg PO TID PRN 10/24/19 05/19/24 History HYDROcodone/APAP 10-325MG [[facility] 1 tab PO TID PRN 08/25/21 05/19/24 History 10-325] Zolpidem [Ambien] 10 mg PO HS PRN 08/25/21 05/19/24 History tadalafiL [Cialis] 20 mg PO DAILY PRN 08/25/21 05/19/24 History Allergies Allergy/AdvReac Type Severity Reaction Status Date / Time No Known Allergies Allergy Verified 05/19/24 20:01 Physical Examination - Vital Signs Vital Signs: Vital Signs Temp Pulse Resp BP Pulse Ox 05/20/24 08:09 96 05/20/24 07:59 64 05/20/24 07:02 60 15 153/88 95 05/20/24 05:24 72 15 141/97 95 05/20/24 03:41 62 18 136/84 95 05/20/24 03:02 72 17 175/91 97 05/20/24 02:01 65 18 165/107 96 05/20/24 00:55 65 17 165/86 96 05/19/24 23:55 63 18 165/81 96 05/19/24 22:27 76 19 150/92 97 05/19/24 21:25 79 18 148/89 97 05/19/24 20:55 75 18 162/96 97 05/19/24 20:25 72 20 188/100 98 05/19/24 19:55 78 22 186/96 99 05/19/24 19:25 80 22 180/99 97 05/19/24 18:55 82 20 175/93 98 05/19/24 18:40 87 20 177/96 99 05/19/24 18:25 84 20 181/92 98 05/19/24 18:10 87 20 178/97 98 05/19/24 17:55 84 20 186/93 99 05/19/24 17:39 65 18 187/96 100 05/19/24 16:56 97.2 F L 58 L 20 192/90 98 Intake and Output 05/19/24 05/20/24 05/20/24 22:59 06:59 14:59 Other: Weight 72.575 kg Patient is an elderly male, in no acute distress, however he is very restless, sometimes lays in the bed, then sits in the bed, then gets out, and kneels on the floor with his arms on the bed, not to relieve back pain. He has chronic back pain, appears very uncomfortable, sometimes paces around. Patient is alert awake oriented to time place and person. Speech and language functions are normal. Patient can name and repeat very well. No aphasia or dysarthria. Attention, concentration and fund of knowledge is adequate. On cranial nerve examination, pupils are equal, round and reacting to light, visual coates are full on confrontation, with no neglect on double simultaneous stimulation. Extraocular muscles are intact with no nystagmus. Face is symmetr ic, tongue protrudes to the midline. Palatal elevation and sensation normal, hearing and shoulder shrug normal, facial sensation normal. On muscle strength testing, there is no pronator drift and the strength is normal in arms and legs distally and proximally. Deep tendon reflexes are symmetric 2 in the lower extremities 1+ in the upper extremities and plantars downgoing. Sensory to touch is equal with no neglect on double simultaneous stimulation. Cerebellar function showed no ataxia for [id number] testing. No dysdiadochokinesia. No ataxia for [id number]-he-[id number] testing on either side. Tone and bulk of muscles normal. Gait deferred.. On general examination, there is no carotid bruit or murmur, S1-S2 audible. Chest is clear on consultation. Abdomen is soft nontender. No organomegaly, bowel sounds present. Peripheral pulses are present. No peripheral edema. Results - Laboratory Findings CBC and BMP: 05/19/24 17:11 05/19/24 17:11 Abnormal Lab Findings: Abnormal Labs 05/19/24 05/19/24 16:59 17:11 Carbon Dioxide 20 L Glucose 116 H POC Glucose (mg/dL) 117 H Assessment and Plan Assessment: * Questionable TIA manifesting with transient expressive aphasia, that resolved in an hour. There were no other associated focal neurological symptoms whatsoever. Patient also has possible gastroenteritis, with nausea vomiting and watery diarrhea for 2 days. Uncertain if this episode was related to dehydration. * Elevated blood pressures, probable hypertension. * Hyperlipidemia * History of cervical decompressive surgery 7 years ago * Marijuana use (sporadically) Plan: Patient will undergo stroke/TIA workup. MRI of the brain without contrast, evaluate for acute CVA 2-D echo with bubble study to rule out PFO CTA head and neck showed: No evidence of dissection of the cervical internal carotid arteries or vertebral arteries or any evidence of significant stenosis at the carotid bifurcations. No evidence of high-grade stenosis or intracranial aneurysm. Fasting a.m. lipid panel Hemoglobin A1c Optimize control of blood pressure. Start aspirin 81 mg daily. Patient was not on any antiplatelet medication at home. Neuro checks every 4 hours. Telemetry monitoring rule out any arrhythmia PT, OT, speech therapy UDS. Patient recommended abstaining from marijuana use. DVT prophylaxis: Heparin 5000 units subcu every 12 hours Neurology will continue to follow. Thank you for the consult.
[2024-05-20] MEDS: HEPARIN SODIUM,PORCINE 5,000 UNIT/ML 1 ML VIAL SQ SCH (13:39)
[2024-05-21] MEDS: GABAPENTIN 300 MG CAP PO PRN (04:53)
[2024-05-21] MEDS: HYDROcodone/APAP 10-325MG 1 EACH TAB PO PRN (04:53)
--- NOTE | 2024-05-21 09:07 | CA ---
Transthoracic Echo Report Name: Rick Gray Age: 74 Gender: M : 1950 Exam Date: 05/20/2024 16:07 Exam Location: [facility] Ht (in): 71 Wt (lb): 160 Ordering Physician: Angel Russo MD Attending/Referring Phys: Field Support Engineer Yolanda Campbell RDCS Procedure CPT: Indications: tia Cardiac Hx: Technical Quality: Fair Contrast 1: Total Dose (mL): Contrast 2: Total Dose (mL): MEASUREMENTS (Male / Female) Normal Values 2D ECHO LV Diastolic Diameter PLAX 3.9 cm 4.2 - 5.9 / 3.9 - 5.3 cm LV Systolic Diameter PLAX 3.0 cm IVS Diastolic Thickness 1.1 cm 0.6 - 1.0 / 0.6 - 0.9 cm LVPW Diastolic Thickness 1.1 cm 0.6 - 1.0 / 0.6 - 0.9 cm LV Relative Wall Thickness 0.5 RV Internal Dim ED PLAX 3.0 cm LA Systolic Diameter LX 3.3 cm 3.0 - 4.0 / 2.7 - 3.8 cm LV Diastolic Volume MOD 4C 114.8 cm??? LV Systolic Volume MOD 4C 53.7 cm??? LV Ejection Fraction MOD 4C 53.2 % LV Cardiac Index MOD 4C 1988.8 cm???/min???m??? LV Diastolic Length 4C 8.2 cm LV Systolic Length 4C 6.4 cm LV Diastolic Volume MOD 2C 99.6 cm??? LV Systolic Volume MOD 2C 31.0 cm??? LV Ejection Fraction MOD 2C 68.9 % LV Cardiac Index MOD 2C 2234.5 cm???/min???m??? LV Diastolic Length 2C 8.3 cm LV Systolic Length 2C 6.4 cm LA Volume 58.7 cm??? 18 - 58 / 22 - 52 cm??? LA Volume Index 30.8 cm???/m??? 16 - 28 cm???/m??? M-MODE Aortic Root Diameter MM 3.9 cm AV Cusp Separation MM 1.9 cm DOPPLER MV Area PHT 3.3 cm??? Mitral E Point Velocity 77.7 cm/s Mitral A Point Velocity 100.9 cm/s Mitral E to A Ratio 0.8 MV Deceleration Time 230.8 ms TR Peak Velocity 239.7 cm/s TR Peak Gradient 23.0 mmHg Right Ventricular Systolic Press 27.5 mmHg FINDINGS Left Ventricle Left ventricular ejection fraction is estimated at 50-55 %. Left ventricular cavity size normal. Left ventricular wall thickness normal. No obvious regional wall motion abnormalities. Right Ventricle Normal right ventricular size and function. Right ventricular systolic pressure within normal limits. Right Atrium Normal right atrial size. No right atrial thrombus or mass seen. Left Atrium Mildly increased left atrial volume. No left atrial thrombus or mass present. Mitral Valve Mitral valve thickened. Elongation of the anterior mitral valve leaflet. Mild mitral regurgitation. Aortic Valve No aortic valve stenosis or regurgitation. Tricuspid Valve Structurally normal tricuspid valve. No tricuspid stenosis, regurgitation or prolapse. Pulmonic Valve Pulmonic valve not well visualized. Pericardium No pericardial effusion. Aorta Mild aortic dilatation at the level of the sinuses of valsalva 39 mm CONCLUSIONS Left ventricular ejection fraction 50-55% RVSP 27 Mildly dilated left atrium Mild mitral regurgitation No pericardial effusion Previewed by: Dr. Crow Chavez DO (Electronically Signed) Final Date: 21 May 2024 09:06
[2024-05-21 11:52] LABS: Chol/HDL Ratio 3.73 Ratio; LDL Cholesterol,Calculated 156.7 mg/dL (0.0-131.0); VLDL Calculation 17.46 mg/dL (5.00-40.00)
[2024-05-21 17:42] LABS: Urine Barbiturate Negative (Negative); Urine Cocaine Negative (Negative); Urine Methadone Negative (Negative); Urine Opiates Positive (Negative); Urine Phencyclidine Negative (Negative)
[2024-05-21] MEDS: ZOLPIDEM 5 MG TAB PO PRN (20:35)
[2024-05-22 06:23] LABS: Glucose,Whole Blood 88 mg/dL (70-110)
--- NOTE | 2024-05-22 08:18 | HP ---
HISTORY AND PHYSICAL CHIEF COMPLAINT: Possible stroke. HISTORY OF PRESENT ILLNESS: This 74-year-old white male, who has generally been healthy and in without any serious illnesses, presented to the emergency room after apparently he had several episodes of nausea, vomiting, and progressive weakness. He came to the emergency room, having some difficulty speaking. The rest of the history is difficult to obtain due to speech issues. He denies headache, chest pain, abdominal pain, weakness on either side, incontinence, etc. PHYSICAL EXAMINATION: VITAL SIGNS: Blood pressure is 175/93 with a pulse rate of 88, respirations of 32 and he is afebrile. GENERAL: Appeared to be slender, awake and alert, in no acute distress. HEAD, EARS, EYES, NOSE, MOUTH AND THROAT: Normal. Pupils are equal and round. Gaze is conjugate. Carotids normal. CHEST: Clear. CARDIAC EXAM: Normal. ABDOMEN: Soft and nontender. EXTREMITIES: Normal. NEUROLOGIC: Cranial nerves were intact as well as sensory and motor exam. Toes were downgoing. He did have difficulty answering questions and was searching for answers, but could generally come up with appropriate responses. ASSESSMENT: Admitted to the hospital with diagnoses of: 1. Possible cerebrovascular accident. 2. Hypertension. PLAN: 1. Bed rest. 2. IV fluids. 3. Frequent monitoring of his neurologic status and vital signs. 4. Neurology consult. MMODL / IJN: [id number] /
--- NOTE | 2024-05-22 13:32 | P.PN ---
Subjective Progress Note Date: 05/21/24 Patient was seen for follow-up. Patient states he is doing much better. He denies any strokelike symptoms. He still do not get words correctly. No new concerns. Objective - Vital Signs Vital signs: Vital Signs Temp 98.3 F 05/21/24 07:55 Pulse 71 05/21/24 11:06 Resp 16 05/21/24 11:06 BP 171/87 05/21/24 11:06 Pulse Ox 97 05/21/24 11:06 FiO2 Intake & Output 05/20/24 05/21/24 05/21/24 18:59 06:59 18:59 Intake Total 10 Output Total 200 Balance 10 -200 Weight 72.4 kg Intake: IV 10 Invasive Line 2 10 Output: Urine 200 Other: Voiding Method Toilet Toilet # Voids 3 - Exam Mental status, speech and language functions normal although he sometimes has difficulty finding words. Rest of the examination is nonfocal. - Labs CBC & Chem 7: 05/19/24 17:11 05/19/24 17:11 Labs: Abnormal Lab Results - Last 24 Hours (Table) 05/20/24 Range/Units 17:11 Cholesterol 238.00 H (0.00-200.00) mg/dL LDL Cholesterol, Calc 156.7 H (0.0-131.0) mg/dL HDL Cholesterol 63.80 H (40.00-60.00) mg/dL Assessment and Plan Assessment: * Questionable TIA manifesting with transient expressive aphasia, that resolved in an hour. There were no other associated focal neurological symptoms what soever. Patient also has possible gastroenteritis, with nausea vomiting and watery diarrhea for 2 days. Uncertain if this episode was related to dehydration. * Elevated blood pressures, probable hypertension. * Hyperlipidemia * History of cervical decompressive surgery 7 years ago * Marijuana use (sporadically) Plan: Patient will undergo stroke/TIA workup. MRI of the brain without contrast, evaluate for acute CVA 2-D echo revealed LVEF 50 to 55% no obvious regional wall motion abnormalities. Mildly increased left atrial volume. No left atrial thrombus or mass. Normal right atrial size. Mild MR. CTA head and neck showed: No evidence of dissection of the cervical internal carotid arteries or vertebral arteries or any evidence of significant stenosis at the carotid bifurcations. No evidence of high-grade stenosis or intracranial aneurysm. Fasting a.m. lipid panel cholesterol 238, LDL 156, HDL 63 and triglycerides 87.30. Start Lipitor 40 mg daily. Hemoglobin A1c 6.0 Urine drug screen positive for opiate, benzo and marijuana. Optimize control of blood pressure. Start aspirin 81 mg daily. Patient was not on any antiplatelet medication at home. Neuro checks every 4 hours. Telemetry monitoring rule out any arrhythmia PT, OT, speech therapy Patient recommended abstaining from marijuana use. DVT prophylaxis: Heparin 5000 units subcu every 12 hours
--- NOTE | 2024-05-22 16:16 | MR ---
EXAMINATION TYPE: MR brain wo con DATE OF EXAM: 05/22/2024 4:11 PM COMPARISON: 05/19/2024. CLINICAL INDICATION: Male, 74 years old with history of TIA; TECHNIQUE: Multi planar, multi sequence imaging was performed through the brain including: T1, T2, In version recovery, Diffusion weighted imaging, and gradient echo imaging. No gadolinium was given. FINDINGS: Mild cerebral atrophy with proportional dilation of ventricular system. Scattered foci of high T2 s ignal intensity are seen within the periventricular white matter. Midline structures show no abnormal ity. Diffusion-weighted imaging shows no evidence of restricted diffusion. The susceptibility weighte d images do not reveal any evidence for micro-hemorrhage. The bone marrow signal is within normal limits. Paranasal sinuses and mastoid air cells: No significant paranasal sinus disease. Right mastoid air ce ll high T2 signal. Visualized orbits: Bilateral aphakia IMPRESSION: 1. No evidence of intracranial mass or acute/subacute infarct. 2. Nonspecific white matter changes, likely secondary to small vessel ischemic disease. 3. Prevascular soft tissue lesion. [facility], , 05/22/2024 4:14 PM
[2024-05-22] MEDS: ATORVASTATIN 40 MG TAB PO SCH (22:14)
--- NOTE | 2024-05-23 01:26 | PN ---
PROGRESS NOTE DATE OF SERVICE: 05/22/2024 CHIEF COMPLAINT: Expressive aphasia. HISTORY OF PRESENT ILLNESS: This gentleman is still having the same trouble. He seems to be having trouble finding words and expressing them. He has had no other symptoms. PHYSICAL EXAMINATION: CHEST: Clear. CARDIAC: Normal. ABDOMEN: Soft, nontender. IMPRESSION: Cerebrovascular accident with aphasia. PLAN: Speech Therapy along with Occupational and Physical Therapies. MMODL / IJN: [id number] /
--- NOTE | 2024-05-23 11:47 | P.PN ---
Subjective Progress Note Date: 05/22/24 Patient was seen for follow-up. Patient states he is doing much better. He denies any strokelike symptoms. He still does not get words correctly. No new concerns. Patient denies any history of seizures. He states that he is still sometimes stumbles on the speech. He is searching for the words. Sometimes slight hesitation. Objective - Vital Signs Vital signs: Vital Signs Temp 98.8 F 05/22/24 12:00 Pulse 62 05/22/24 14:00 Resp 18 05/22/24 14:00 BP 161/81 05/22/24 12:00 Pulse Ox 99 05/22/24 12:00 FiO2 Intake & Output 05/21/24 05/22/24 05/22/24 18:59 06:59 18:59 Intake Total 480 Output Total 200 Balance -200 480 Weight 72.1 kg Intake: Oral 480 Output: Urine 200 Other: Voiding Method Toilet Toilet Toilet # Voids 2 2 1 # Bowel Movements 1 - Labs CBC & Chem 7: 05/19/24 17:11 05/19/24 17:11 Labs: Abnormal Lab Results - Last 24 Hours (Table) 05/21/24 Range/Units 08:40 Urine Opiates Screen Positive A (Negative) U Benzodiazepines Scrn Positive A (Negative) U Cannabinoids Screen Positive A (Negative) Assessment and Plan Assessment: * Questionable TIA manifesting with transient expressive aphasia, that resolved in an hour. There were no other associated focal neurological symptoms whatsoever. Patient also has possible gastroenteritis, with nausea vomiting and watery diarrhea for 2 days. Uncertain if this episode was related to dehydration. * Patient with some word hesitancy, word finding difficulty off and on for last 6 months to year. Unclear cause. * Elevated blood pressures, probable hypertension. * Hyperlipidemia * History of cervical decompressive surgery 7 years ago * Marijuana use (sporadically) Plan: Patient will undergo stroke/TIA workup. MRI of the brain without contrast, revealed no evidence of intracranial mass or acute/subacute infarct. Nonspecific white matter changes, likely secondary to small vessel ischemic disease. I personally reviewed MRI agree with the findings. 2-D echo revealed LVEF 50 to 55% no obvious regional wall motion abnormalities. Mildly increased left atrial volume. No left atrial thrombus or mass. Normal right atrial size. Mild MR. CTA head and neck showed: No evidence of dissection of the cervical internal carotid arteries or vertebral arteries or any evidence of significant stenosis at the carotid bifurcations. No evidence of high-grade stenosis or intracranial aneurysm. Fasting a.m. lipid panel cholesterol 238, LDL 156, HDL 63 and triglycerides 87.30. Start Lipitor 40 mg daily. Hemoglobin A1c 6.0 Urine drug screen positive for opiate, benzo and marijuana. Optimize control of blood pressure. Check EEG because of recurrent speech difficulty, rule out focal seizures. Start aspirin 81 mg daily. Patient was not on any antiplatelet medication at home. Neuro checks every 4 hours. Telemetry monitoring rule out any arrhythmia PT, OT, speech therapy Patient recommended abstaining from marijuana use. DVT prophylaxis: Heparin 5000 units subcu every 12 hours
[2024-05-23] MEDS: CLOPIDOGREL 75 MG TAB PO SCH (12:47)
--- NOTE | 2024-05-23 16:26 | P.PN ---
Subjective Progress Note Date: 05/23/24 Patient was seen for follow-up. Patient states he is doing much better. He denies any strokelike symptoms. He still has to think about the next word that he wants to speak sometimes. Can speak a few words, but then most of the time has to think about the words he want to speak. Patient denies any history of seizures. He states that he is still sometimes stumbles on the speech. He is searching for the words. Sometimes slight hesitation. Objective - Vital Signs Vital signs: Vital Signs Temp 98.6 F 05/23/24 12:00 Pulse 68 05/23/24 12:00 Resp 18 05/23/24 12:00 BP 163/76 05/23/24 12:00 Pulse Ox 98 05/23/24 12:00 FiO2 Intake & Output 05/22/24 05/23/24 05/23/24 18:59 06:59 18:59 Intake Total 600 480 Balance 600 480 Weight 74.8 kg Intake: Oral 600 480 Other: Voiding Method Toilet Toilet # Voids 1 2 # Bowel Movements 1 - Exam Mental status, speech and language functions normal although he sometimes has difficulty finding words. Patient can name and repeat very well. Patient can express very well. Patient can follow complex commands very well. Rest of the examination is nonfocal. Patient has negative visual spatial apraxia, very minimal palmomental reflex positive. Rest of the examination is nonfocal. Patient can read and write. - Labs CBC & Chem 7: 05/19/24 17:11 05/19/24 17:11 Assessment and Plan Assessment: * Questionable TIA manifesting with transient expressive aphasia, that resolved in an hour. There were no other associated focal neurological symptoms whatsoever. Patient also has possible gastroenteritis, with nausea vomiting and watery diarrhea for 2 days. Uncertain if this episode was related to dehydration. * Patient with some word hesitancy, word finding difficulty off and on for last 6 months to year. Unclear cause. * Elevated blood pressures, probable hypertension. * Hyperlipidemia * History of cervical decompressive surgery 7 years ago * Marijuana use (sporadically) Plan: Patient will undergo stroke/TIA workup. MRI of the brain without contrast, revealed no evidence of intracranial mass or acute/subacute infarct. Nonspecific white matter changes, likely secondary to small vessel ischemic disease. I personally reviewed MRI agree with the fi ndings. 2-D echo revealed LVEF 50 to 55% no obvious regional wall motion abnormalities. Mildly increased left atrial volume. No left atrial thrombus or mass. Normal right atrial size. Mild MR. CTA head and neck showed: No evidence of dissection of the cervical internal carotid arteries or vertebral arteries or any evidence of significant stenosis at the carotid bifurcations. No evidence of high-grade stenosis or intracranial aneurysm. Fasting a.m. lipid panel cholesterol 238, LDL 156, HDL 63 and triglycerides 87.30. Start Lipitor 40 mg daily. Hemoglobin A1c 6.0 Urine drug screen positive for opiate, benzo and marijuana. Optimize control of blood pressure. EEG was performed, which was normal during wakefulness, drowsiness and stage II sleep. No focal, lateralized or epileptiform activity was seen. Start aspirin 81 mg daily. Patient was not on any antiplatelet medication at home. Telemetry monitoring rule out any arrhythmia PT, OT, speech therapy Patient recommended abstaining from marijuana use. DVT prophylaxis: Heparin 5000 units subcu every 12 hours Recommend patient follow-up with neurologist outpatient regarding his speech dif ficulty. Neurologically clear for discharge.
[2024-05-23] MEDS: LOSARTAN 50 MG TAB PO SCH (17:49)
[2024-05-23 19:03] LABS: Urine Alcohol Negative (Negative)
[2024-05-23] MEDS: ATORVASTATIN 80 MG TAB PO SCH (19:57)
[2024-05-23 20:49] VITALS: TEMP 98
--- NOTE | 2024-05-23 22:53 | EEG ---
ELECTROENCEPHALOGRAM REPORT PREAMBLE: This is a 74-year-old male with recurrent speech difficulty. This study is performed to rule out any epileptiform activity. EEG FINDINGS: This is a 21-channel digital EEG recorded with video component, utilizing 10/20 international system with referential and bipolar montages. Background consists of well developed, well regulated moderate voltage activity in 8 to 9 hertz alpha. Background is posterior dominant and reactive to eye opening and closing. Photic driving response was not seen. Drowsiness was seen with appearance of bilaterally symmetric theta frequency rhythm. Stage 2 sleep was attained with presence of diffuse low amplitude mixed delta theta activity with sleep spindles. No focal or generalized epileptiform activity was seen. EKG channel showed no obvious arrhythmia. IMPRESSION: This is a normal EEG during wakefulness, drowsiness, and stage 2 sleep. No focal, lateralized, or epileptiform activity was seen. MMRUSSELL / AXEL: [id number] /
--- NOTE | 2024-05-23 23:05 | PN ---
PROGRESS NOTE DATE OF SERVICE: 05/23/2024 CHIEF COMPLAINT: CVA with expressive aphasia. HISTORY OF PRESENT ILLNESS: This gentleman is doing fairly well, and he is undergoing an echocardiogram right now. PHYSICAL EXAMINATION: VITAL SIGNS: His blood pressure is slightly elevated, and this will be addressed. CHEST: Clear. IMPRESSION: Cerebrovascular accident with expressive aphasia. PLAN: 1. Await results of echocardiogram. 2. Start Plavix 75 mg for 21 days along with aspirin and continue to monitor his progression. MMODL / IJN: [id number] /
[2024-05-24 12:31] VITALS: BP 148/62; PULSE 68; RESP 16
--- NOTE | 2024-05-25 01:32 | DS ---
DISCHARGE SUMMARY CHIEF COMPLAINT: Difficulty speaking. HISTORY OF PRESENT ILLNESS AND PHYSICAL EXAM: Details of this man's history and physical can be found in the initial workup. LABORATORY STUDIES: While he is in the hospital, he had laboratory studies, details of which can be found in the laboratory section of his chart. COURSE IN THE HOSPITAL: After admission, he was placed on bedrest with frequent monitoring of his neurologic status and vital signs. He never developed any cranial nerve or sensory motor deficits, but he did have trouble with expressive aphasia. He was seen by Speech Therapy. He was doing well and it was felt that he could be discharged on the after he is cleared by Neurology. His blood pressure was slightly high, but it was felt important to leave his systolic running around 160 mmHg given his stroke. He will go home on light activity and regular diet along with Plavix 75 mg once a day for 21 days and aspirin. He will be seen in the office in a week. FINAL DIAGNOSES: 1. Cerebrovascular accident with expressive aphasia. 2. Hypertension. OPERATIONS: None. CONSULTATION: Neurology. CONDITION ON DISCHARGE: He has improved. MMODL / IJN: [id number] /
== END 2024-05-24 13:15 | disposition home or self-care (01) | DRG 66 ==
LOC: EC 16:55 → 3SCARD 20:07
PROVIDERS: ADMIT Family Medicine; ATTEND Family Medicine
DX: I63.9 Cerebral infarction, unspecified (principal); E86.0 Dehydration; R47.01 Aphasia; I10 Essential (primary) hypertension; M19.90 Unspecified osteoarthritis, unspecified site; M48.02 Spinal stenosis, cervical region; F41.9 Anxiety disorder, unspecified; G47.00 Insomnia, unspecified; G89.29 Other chronic pain; E78.5 Hyperlipidemia, unspecified; Z79.899 Other long term (current) drug therapy; Z87.891 Personal history of nicotine dependence; R29.702 NIHSS score 2; Z28.21 Immunization not carried out because of patient refusal; Z90.5 Acquired absence of kidney; Z11.52 Encounter for screening for COVID-19
CPT/HCPCS: 36415; 70450; 70496; 70498; 70551; 71046; 80053; 80061; 80306; 82550; 83036; 84484; 85025; 85610; 85730; 87636; 93005; 93306; 95816; 96361; 96372; 96374; 96375; 96376; 99291

== ENCOUNTER 2024-06-07 19:42 | Emergency (ER) | payer MEDICARE ==
[2024-06-07 19:51] VITALS: RESP 17; TEMP 98.7
[2024-06-07 20:37] LABS: Basophils % (A) 0 %; Eosinophils % (A) 0 %; HCT 42.3 % (39.0-53.0); HGB 14.3 gm/dL (13.0-17.5); Lymphocytes # (A) 0.8 k/uL (1.0-4.8); Lymphocytes % (A) 11 %; MCH 30.7 pg (25.0-35.0); MCHC 33.8 g/dL (31.0-37.0); MCV 90.8 fL (80.0-100.0); Mean Platelet Volume 9.8; Monocytes # (A) 0.2 k/uL (0-1.0); Monocytes % (A) 3 %; Neutrophils # (A) 6.1 k/uL (1.3-7.7); Neutrophils % (A) 84 %; Platelet Count 214 k/uL (150-450); RBC 4.66 m/uL (4.30-5.90); RDW 13.3 % (11.5-15.5); WBC 7.2 k/uL (3.8-10.6)
[2024-06-07 20:42] LABS: ALT 19 U/L (4-49); AST 25 U/L (17-59); African American GFR (CKD) >90 (>60 ml/min/1.73 sqM); Albumin 4.2 g/dL (3.5-5.0); Alkaline Phosphatase 66 U/L (38-126); Anion Gap 10 mmol/L; Blood Urea Nitrogen 10 mg/dL (9-20); Calcium 9.1 mg/dL (8.4-10.2); Carbon Dioxide 21 mmol/L (22-30); Chloride 106 mmol/L (98-107); Glucose 112 mg/dL (74-99); Non-African American GFR(CKD) >90 (>60 ml/min/1.73 sqM); Potassium 3.7 mmol/L (3.5-5.1); Sodium 137 mmol/L (137-145); Total Bilirubin 0.8 mg/dL (0.2-1.3); Total Protein 6.8 g/dL (6.3-8.2)
[2024-06-07 21:09] LABS: Prothrombin Time 10.7 sec (10.0-12.5)
--- NOTE | 2024-06-07 21:14 | XR ---
EXAMINATION TYPE: XR chest 2V DATE OF EXAM: 06/07/2024 9:04 PM COMPARISON: Prior chest radiograph 05/19/2024. CLINICAL INDICATION: Male, 74 years old with history of altered mental status; [facility] TECHNIQUE: XR chest 2V Frontal and lateral views of the chest. FINDINGS: Lungs/Pleura: There is no evidence of pleural effusion, focal consolidation, or pneumothorax. Pulmonary vascularity: Unremarkable. Heart/mediastinum: Cardiomediastinal silhouette is unremarkable. Musculoskeletal: No acute osseous pathology. Other findings: None IMPRESSION: No acute cardiopulmonary disease/process. [facility], , 06/07/2024 9:12 PM
[2024-06-07] MEDS: SODIUM CHLORIDE 0.9% 500 ML 500 ML IV ONE (21:22)
[2024-06-07 21:24] LABS: Partial Thromboplastin Time 18.3 sec (22.0-30.0)
[2024-06-07 21:33] LABS: Appearance,Urine Clear (Clear); Bilirubin,Urine Negative (Negative); Blood,Urine Negative (Negative); Color,Urine Light Yellow; Glucose,Urine (UA) Negative (Negative); Ketones,Urine 2+ (Negative); Leukocyte Esterase,Urine Negative (Negative); Nitrite,Urine Negative (Negative); PH, Urine 7.5 (5.0-8.0); Protein,Urine Trace (Negative); Specific Gravity,Urine 1.013 (1.001-1.035); Urobilinogen,Urine <2.0 mg/dL (<2.0)
[2024-06-07 21:37] LABS: Influenza A Not Detected (Not Detectd); Influenza B Not Detected (Not Detectd); RSV Not Detected (Not Detectd)
[2024-06-07 21:48] LABS: Amphetamine Screen,Urine Not Detected (NotDetected); Barbiturate Screen,Urine Not Detected (NotDetected); Benzodiazepines Screen,Urine Not Detected (NotDetected); Cocaine Screen,Urine Not Detected (NotDetected); Methadone Screen, Urine Not Detected (NotDetected); Opiate Screen,Urine Detected (NotDetected); Oxycodone Screen, Urine Not Detected (NotDetected); Phencyclidine Screen,Urine Not Detected (NotDetected); Tricyclic Antidepressant,Urine Not Detected (NotDetected); Urn Cannabinoid Scrn Detected (NotDetected)
--- NOTE | 2024-06-07 22:14 | ED ---
General Adult HPI - General Chief complaint: Nausea/Vomiting/Diarrhea Stated complaint: NVD Time Seen by Provider: 06/07/24 19:51 Source: patient, EMS Mode of arrival: EMS Limitations: no limitations - History of Present Illness Initial comments: 74-year-old male presents to the emergency department for evaluation of nausea and vomiting with associated diarrhea. Patient states that this has been going on for 1 day. He notes that this happened to him about 1 week ago as well. He notes that at that time he was having difficulty with his speech. He was admitted to the hospital and had a full stroke workup performed including a brain CTA, MRI, neurology consultation. He was discharged home. He states that he continued to have some difficulties with his speech following this he has had no changes in this today. He notes that again he is dealing with some nausea. He does report that it is improved since earlier today. He denies any recent fever, chills. Denies any chest pain, shortness of breath. Denies any abdominal pain. - Related Data Home Medications Medication Instructions Recorded Confirmed Gabapentin 600 mg PO TID PRN 10/24/19 06/12/24 HYDROcodone/APAP 10-325MG [[place] 1 tab PO TID PRN 08/25/21 06/12/24 10-325] Zolpidem [Ambien] 10 mg PO HS PRN 08/25/21 06/12/24 tadalafiL [Cialis] 20 mg PO DAILY PRN 08/25/21 06/12/24 Aspirin 81 mg PO DIRECTED 06/12/24 06/12/24 Atorvastatin [Lipitor] 80 mg PO DIRECTED 06/12/24 06/12/24 Clopidogrel [Plavix] 75 mg PO DIRECTED 06/12/24 06/12/24 Losartan [Cozaar] 100 mg PO DIRECTED 06/12/24 06/12/24 Allergies Allergy/AdvReac Type Severity Reaction Status Date / Time No Known Allergies Allergy Verified 06/12/24 18:51 Review of Systems ROS Statement: Those systems with pertinent positive or pertinent negative responses have been documented in the HPI. ROS Other: All systems not noted in ROS Statement are negative. Past Medical History Past Medical History: Hyperlipidemia, Hypertension, Osteoarthritis (OA) Additional Past Medical History / Comment(s): insomnia, neck pain, donated left kidney 2003. History of Any Multi-Drug Resistant Organisms: None Reported Past Surgical History: Orthopedic Surgery Additional Past Surgical History / Comment(s): bilateral ACL repair. left kidney removed and donated, cervical spine surgery Past Anesthesia/Blood Transfusion Reactions: No Reported Reaction Past Psychological History: Anxiety Smoking Status: Former smoker Past Alcohol Use History: None Reported Past Drug Use History: Marijuana - Past Family History Mother Family Medical History: Osteoarthritis (OA) Sister(s) Family Medical History: Cancer General Exam Limitations: no limitations General appearance: alert, in no apparent distress Head exam: Present: atraumatic, normocephalic, normal inspection Eye exam: Present: normal appearance, PERRL, EOMI. Absent: scleral icterus, conjunctival injection, periorbital swelling ENT exam: Present: normal exam, mucous membranes moist Neck exam: Present: normal inspection. Absent: tenderness, meningismus, lymphadenopathy Respiratory exam: Present: normal lung sounds bilaterally. Absent: respiratory distress, wheezes, rales, rhonchi, stridor Cardiovascular Exam: Present: regular rate, normal rhythm, normal heart sounds. Absent: systolic murmur, diastolic murmur, rubs, gallop, clicks GI/Abdominal exam: Present: soft, normal bowel sounds. Absent: distended, tenderness, guarding, rebound, rigid Extremities exam: Present: normal inspection, full ROM, normal capillary refill. Absent: tenderness, pedal edema, joint swelling, calf tenderness Neurological exam: Present: alert, oriented X3 Psychiatric exam: Present: normal affect, normal mood Skin exam: Present: warm, dry, intact, normal color. Absent: rash Course Vital Signs 06/07/24 06/07/24 19:47 23:14 Temperature 98.7 F Pulse Rate 75 82 Respiratory 17 17 Rate Blood Pressure 198/88 183/85 O2 Sat by Pulse 97 93 L Oximetry Medical Decision Making - Medical Decision Making Was pt. sent in by a medical professional or institution (, PA, FORMING PRESS OPERATOR, urgent care, hospital, or senior living...) When possible be specific @ -No Did you speak to anyone other than the patient for history (EMS, parent, family, police, friend...)? What history was obtained from this source @ -No Did you review nursing and triage notes (agree or disagree)? Why? @ -I reviewed and agree with nursing and triage notes Were old charts reviewed (outside hosp., previous admission, EMS record, old EKG, old radiological studies, urgent care reports/EKG's, senior living records)? Report findings @ -No old charts were reviewed Differential Diagnosis (chest pain, altered mental status, abdominal pain women, abdominal pain men, vaginal bleeding, weakness, fever, dyspnea, syncope, headache, dizziness, GI bleed, back pain, seizure, CVA, palpatations, mental health, musculoskeletal)? @ -Not applicable EKG interpreted by me (3pts min.). @ -EKG [id number] shows sinus rhythm rate 69, VA 153, QRS 106, QTQTc 3 9914 X-rays interpreted by me (1pt min.). @ -Chest x-ray shows no acute process CT interpreted by me (1pt min.). @ -None done U/S interpreted by me (1pt. min.). @ -None done What testing was considered but not performed or refused? (CT, X-rays, U/S, labs)? Why? @ -None What meds were considered but not given or refused? Why? @ -None Did you discuss the management of the patient with other professionals (professionals i.e. , PA, FORMING PRESS OPERATOR, lab, RT, psych nurse, social worker health services, transitional care manager, teacher, senior credit officer, onsite case manager)? Give summary @ -No Was smoking cessation discussed for >3mins.? @ -No Was critical care preformed (if so, how long)? @ -No Were there social determinants of health that impacted care today? How? (Homelessness, low income, unemployed, alcoholism, drug addiction, transpor tation, low edu. Level, literacy, decrease access to med. care, half-way, rehab)? @ -No Was there de-escalation of care discussed even if they declined (Discuss DNR or withdrawal of care, Hospice)? DNR status @ -No What co-morbidities impacted this encounter? (DM, HTN, Smoking, COPD, CAD, Cancer, CVA, ARF, Chemo, Hep., AIDS, mental health diagnosis, sleep apnea, morbid obesity)? @ -None Was patient admitted / discharged? Hospital course, mention meds given and route, prescriptions, significant lab abnormalities, going to OR and other pertinent info. @ -Discharge. Patient presented the emergency department for evaluation of nausea and vomiting. Laboratory studies obtained revealing no significant leukocytosis, hemoglobin 14.3; coagulation studies and CMP on actionable, negative troponin; UA shows 2+ ketones otherwise no evidence of infectious process urine drug screen positive for opiates and marijuana. He is negative for COVID, influenza, RSV. He is not having any abdominal pain. Patient was administered IV fluids in the ED. He was also provided a dose of clonidine due to his blood pressure being elevated. He did not take his afternoon dose of the medication today. He will be discharged home as he is feeling better. Patient is understanding agreeable with this plan. Patient stable at time of discharge. Case discussed with Dr. Payne Undiagnosed new problem with uncertain prognosis? @ -No Drug Therapy requiring intensive monitoring for toxicity (Heparin, Nitro, I nsulin, Cardizem)? @ -No Were any procedures done? @ -No Diagnosis/symptom? @ -Nausea and vomiting Acute, or Chronic, or Acute on Chronic? @ -Acute Uncomplicated (without systemic symptoms) or Complicated (systemic symptoms)? @ -Uncomplicated Side effects of treatment? @ -No Exacerbation, Progression, or Severe Exacerbation? @ -No Poses a threat to life or bodily function? How? (Chest pain, USA, SD, pneumonia, PE, COPD, DKA, ARF, appy, cholecystitis, CVA, Diverticulitis, Homicidal, Suicid al, threat to staff... and all critical care pts) @ -No - Lab Data Result diagrams: 06/07/24 20:30 06/07/24 20:30 Lab Results 06/07/24 06/07/24 06/07/24 Range/Units 20:30 20:30 20:42 WBC 7.2 (3.8-10.6) k/uL RBC 4.66 (4.30-5.90) m/uL Hgb 14.3 (13.0-17.5) gm/dL Hct 42.3 (39.0-53.0) % MCV 90.8 (80.0-100.0) fL MCH 30.7 (25.0-35.0) pg MCHC 33.8 (31.0-37.0) g/dL RDW 13.3 (11.5-15.5) % Plt Count 214 (150-450) k/uL MPV 9.8 Neutrophils % 84 % Lymphocytes % 11 % Monocytes % 3 % Eosinophils % 0 % Basophils % 0 % Neutrophils # 6.1 (1.3-7.7) k/uL Lymphocytes # 0.8 L (1.0-4.8) k/uL Monocytes # 0.2 (0-1.0) k/uL Eosinophils # 0.0 (0-0.7) k/uL Basophils # 0.0 (0-0.2) k/uL PT 10.7 (10.0-12.5) sec INR 1.0 (<1.2) APTT 18.3 L (22.0-30.0) sec Sodium 137 (137-145) mmol/L Potassium 3.7 (3.5-5.1) mmol/L Chloride 106 (98-107) mmol/L Carbon Dioxide 21 L (22-30) mmol/L Anion Gap 10 mmol/L BUN 10 (9-20) mg/dL Creatinine 0.64 L (0.66-1.25) mg/dL Est GFR (CKD-EPI)AfAm >90 (>60 ml/min/1.73 sqM) Est GFR (CKD-EPI)NonAf >90 (>60 ml/min/1.73 sqM) Glucose 112 H (74-99) mg/dL Calcium 9.1 (8.4-10.2) mg/dL Total Bilirubin 0.8 (0.2-1.3) mg/dL AST 25 (17-59) U/L ALT 19 (4-49) U/L Alkaline Phosphatase 66 (38-126) U/L Troponin I (0.000-0.034) ng/mL Total Protein 6.8 (6.3-8.2) g/dL Albumin 4.2 (3.5-5.0) g/dL Urine Color Urine Appearance (Clear) Urine pH (5.0-8.0) Ur Specific [place] (1.001-1.035) Urine Protein (Negative) Urine Glucose (UA) (Negative) Urine Ketones (Negative) Urine Blood (Negative) Urine Nitrite (Negative) Urine Bilirubin (Negative) Urine Urobilinogen (<2.0) mg/dL Ur Leukocyte Esterase (Negative) Urine Opiates Screen (NotDetected) Ur Oxycodone Screen (NotDetected) Urine Methadone Screen (NotDetected) Ur Barbiturates Screen (NotDetected) U Tricyclic Antidepress (NotDetected) Ur Phencyclidine Scrn (NotDetected) Ur Amphetamines Screen (NotDetected) U Methamphetamines Scrn (NotDetected) U Benzodiazepines Scrn (NotDetected) Urine Cocaine Screen (NotDetected) U Marijuana (THC) Screen (NotDetected) Influenza Type A (PCR) (Not Detectd) Influenza Type B (PCR) (Not Detectd) RSV (PCR) (Not Detectd) SARS-CoV-2 (PCR) (Not Detectd) 06/07/24 06/07/24 06/07/24 Range/Units 20:42 20:52 21:25 WBC (3.8-10.6) k/uL RBC (4.30-5.90) m/uL Hgb (13.0-17.5) gm/dL Hct (39.0-53.0) % MCV (80.0-100.0) fL MCH (25.0-35.0) pg MCHC (31.0-37.0) g/dL RDW (11.5-15.5) % Plt Count (150-450) k/uL MPV Neutrophils % % Lymphocytes % % Monocytes % % Eosinophils % % Basophils % % Neutrophils # (1.3-7.7) k/uL Lymphocytes # (1.0-4.8) k/uL Monocytes # (0-1.0) k/uL Eosinophils # (0-0.7) k/uL Basophils # (0-0.2) k/uL PT (10.0-12.5) sec INR (<1.2) APTT (22.0-30.0) sec Sodium (137-145) mmol/L Potassium (3.5-5.1) mmol/L Chloride (98-107) mmol/L Carbon Dioxide (22-30) mmol/L Anion Gap mmol/L BUN (9-20) mg/dL Creatinine (0.66-1.25) mg/dL Est GFR (CKD-EPI)AfAm (>60 ml/min/1.73 sqM) Est GFR (CKD-EPI)NonAf (>60 ml/min/1.73 sqM) Glucose (74-99) mg/dL Calcium (8.4-10.2) mg/dL Total Bilirubin (0.2-1.3) mg/dL AST (17-59) U/L ALT (4-49) U/L Alkaline Phosphatase (38-126) U/L Troponin I <0.012 (0.000-0.034) ng/mL Total Protein (6.3-8.2) g/dL Albumin (3.5-5.0) g/dL Urine Color Light Yellow Urine Appearance Clear (Clear) Urine pH 7.5 (5.0-8.0) Ur Specific [place] 1.013 (1.001-1.035) Urine Protein Trace H (Negative) Urine Glucose (UA) Negative (Negative) Urine Ketones 2+ H (Negative) Urine Blood Negative (Negative) Urine Nitrite Negative (Negative) Urine Bilirubin Negative (Negative) Urine Urobilinogen <2.0 (<2.0) mg/dL Ur Leukocyte Esterase Negative (Negative) Urine Opiates Screen Detected H (NotDetected) Ur Oxycodone Screen Not Detected (NotDetected) Urine Methadone Screen Not Detected (NotDetected) Ur Barbiturates Screen Not Detected (NotDetected) U Tricyclic Antidepress Not Detected (NotDetected) Ur Phencyclidine Scrn Not Detected (NotDetected) Ur Amphetamines Screen Not Detected (NotDetected) U Methamphetamines Scrn Not Detected (NotDetected) U Benzodiazepines Scrn Not Detected (NotDetected) Urine Cocaine Screen Not Detected (NotDetected) U Marijuana (THC) Screen Detected H (NotDetected) Influenza Type A (PCR) Not Detected (Not Detectd) Influenza Type B (PCR) Not Detected (Not Detectd) RSV (PCR) Not Detected (Not Detectd) SARS-CoV-2 (PCR) Not Detected (Not Detectd) Disposition Clinical Impression: Nausea and vomiting Disposition: HOME SELF-CARE Condition: Stable Instructions (If sedation given, give patient instructions): Acute Nausea and Vomiting (ED) Additional Instructions: Please follow up with your primary care provider. Return to the emergency department for new or worsening symptoms. Is patient prescribed a controlled substance at d/c from ED?: No Referrals: Robert Anderson MD [Primary Care Provider] - 1-2 days
[2024-06-07] MEDS: KETOROLAC 15 MG/ML 1 ML VIAL IVP STA (22:32)
[2024-06-07] MEDS: cloNIDine HCL 0.2 MG TAB PO STA (22:43)
[2024-06-07 23:15] VITALS: BP 183/85; PULSE 82
== END 2024-06-07 23:15 | disposition home or self-care (01) ==
LOC: EC 19:42
DX: R11.2 Nausea with vomiting, unspecified (principal); Z87.891 Personal history of nicotine dependence
CPT/HCPCS: 36415; 93005; 80053; 84484; 85025; 85610; 85730; 81003; 80306; 87636; 71046; 99285; 96374; J1885

== ENCOUNTER 2024-06-12 12:16 | Emergency (ER) | payer MEDICARE ==
--- NOTE | 2024-06-12 12:34 | ED ---
Nausea/Vomiting/Diarrhea HPI - General Source: patient, family, RN notes reviewed, old records reviewed Mode of arrival: wheelchair Limitations: no limitations <Hilda Gerber - Last Filed: 06/12/24 12:35> - General Source: patient, family, RN notes reviewed, old records reviewed Mode of arrival: wheelchair Limitations: no limitations - History of Present Illness MD complaint: nausea, vomiting -: days(s) Description of Vomiting: bilious Location: epigastric Radiation: none Severity: moderate Severity scale (1-10): 4 Consistency: intermittent Improves with: none Worsens with: none Associated Symptoms: loss of appetite, malaise, nausea/vomiting <Miquel Collins - Last Filed: 06/19/24 16:19> - General Stated complaint: vomiting Time Seen by Provider: 06/12/24 12:33 - History of Present Illness Initial comments: Quick note: 74 old male presented the ER for evaluation of nausea. He states it has been on and off over the past week worse today. Patient was recently admitted for CVA. reports low-grade fevers at home. Patient denies any chest pain, cough or congestion. (Hilda Gerber) This is a 74 male to the ER with persistent nausea vomiting going on and off for a few days with low-grade fevers no abdominal pain no chest pain currently. No history of abdominal surgery but severe nausea with active vomiting here in the emergency department (Miquel Collins) - Related Data Home Medications Medication Instructions Recorded Confirmed Gabapentin 600 mg PO TID PRN 10/24/19 06/12/24 HYDROcodone/APAP 10-325MG [[place] 1 tab PO TID PRN 08/25/21 06/12/24 10-325] Zolpidem [Ambien] 10 mg PO HS PRN 08/25/21 06/12/24 tadalafiL [Cialis] 20 mg PO DAILY PRN 08/25/21 06/12/24 Aspirin 81 mg PO DIRECTED 06/12/24 06/12/24 Atorvastatin [Lipitor] 80 mg PO DIRECTED 06/12/24 06/12/24 Clopidogrel [Plavix] 75 mg PO DIRECTED 06/12/24 06/12/24 Losartan [Cozaar] 100 mg PO DIRECTED 06/12/24 06/12/24 Allergies Allergy/AdvReac Type Severity Reaction Status Date / Time No Known Allergies Allergy Verified 06/12/24 18:51 Review of Systems ROS Other: All systems not noted in ROS Statement are negative. <DemianiamHilda - Last Filed: 06/12/24 12:35> ROS Other: All systems not noted in ROS Statement are negative. <Miquel Collins - Last Filed: 06/19/24 16:19> ROS Statement: Those systems with pertinent positive or pertinent negative responses have been documented in the HPI. Past Medical History Past Medical History: Hyperlipidemia, Hypertension, Osteoarthritis (OA) Additional Past Medical History / Comment(s): insomnia, neck pain, donated left kidney 2003. History of Any Multi-Drug Resistant Organisms: None Reported Past Surgical History: Orthopedic Surgery Additional Past Surgical History / Comment(s): bilateral ACL repair. left kidney removed and donated, cervical spine surgery Past Anesthesia/Blood Transfusion Reactions: No Reported Reaction Past Psychological History: Anxiety Smoking Status: Former smoker Past Alcohol Use History: None Reported Past Drug Use History: Marijuana - Past Family History Mother Family Medical History: Osteoarthritis (OA) Sister(s) Family Medical History: Cancer <BuzzHilda - Last Filed: 06/12/24 12:35> General Exam <DemianMelissa vitalenn - Last Filed: 06/12/24 12:35> General appearance: alert, in no apparent distress Head exam: Present: atraumatic, normocephalic, normal inspection Eye exam: Present: normal appearance, PERRL, EOMI. Absent: scleral icterus, conjunctival injection, periorbital swelling ENT exam: Present: normal exam, mucous membranes moist Neck exam: Present: normal inspection. Absent: tenderness, meningismus, lymphadenopathy Respiratory exam: Present: normal lung sounds bilaterally. Absent: respiratory distress, wheezes, rales, rhonchi, stridor Cardiovascular Exam: Present: regular rate, normal rhythm, normal heart sounds. Absent: systolic murmur, diastolic murmur, rubs, gallop, clicks GI/Abdominal exam: Present: soft, normal bowel sounds. Absent: distended, t enderness, guarding, rebound, rigid Extremities exam: Present: normal inspection, full ROM, normal capillary refill. Absent: tenderness, pedal edema, joint swelling, calf tenderness Back exam: Present: normal inspection Neurological exam: Present: alert, oriented X3, CN II-XII intact Psychiatric exam: Present: normal affect, normal mood Skin exam: Present: warm, dry, intact, normal color. Absent: rash <Miquel Collins - Last Filed: 06/19/24 16:19> - General Exam Comments Initial Comments: Visual Physical Exam Vital signs reviewed General: Well-appearing, nontoxic, no acute distress. Head: Normocephalic, atraumatic Eyes: PERRLA, EOMI ENT: Airway patent Chest: Nonlabored breathing Skin: No visual rash, normal skin tone Neuro: Alert and oriented 3 Musculoskeletal: No gross abnormalities (Hilda Gerber) Course <Miquel Collins - Last Filed: 06/19/24 16:19> Vital Signs 06/12/24 12:38 Temperature 97.8 F Pulse Rate 68 Respiratory 18 Rate Blood Pressure 164/84 O2 Sat by Pulse 98 Oximetry - Reevaluation(s) Reevaluation #1: 06/12/24 20:08 Medical records reviewed (Miquel Collins) Reevaluation #2: 06/12/24 20:08 Patient symptoms dramatically improved feels good for discharge (Miquel Crystal) Reevaluation #3: 06/12/24 20:08 Patient informed of results questions answered (Miquel Collins) Reevaluation #4: Was pt. sent in by a medical professional or institution (, PA, WORKFORCE PLANNER, urgent care, hospital, or skilled nursing...) When possible be specific @ -no Did you speak to anyone other than the patient for history (EMS, parent, family, police, friend...)? What history was obtained from this source @ -no Did you review nursing and triage notes (agree or disagree)? Why? @ -agree Are old charts reviewed (outside hosp., previous admission, EMS record, old EKG, old radiological studies, urgent care reports/EKG's, skilled nursing records)? Report findings @ -yes Differential Diagnosis (chest pain, altered mental status, abdominal pain women, abdominal pain men, vaginal bleeding, weakness, fever, dyspnea, syncope, headache, dizziness, GI bleed, back pain, seizure, CVA, palpatations, mental health, musculoskeletal)? @ -prior EKG interpreted by me (3pts min.). @ -yes X-rays interpreted by me (1pt min.). @ -no CT interpreted by me (1pt min.). @ -no U/S interpreted by me (1pt. min.). @ -no What testing was considered but not performed or refused? (CT, X-rays, U/S, labs)? Why? @ -none What meds were considered but not given or refused? Why? @ -none Did you discuss the management of the patient with other professionals (professionals i.e. , PA, WORKFORCE PLANNER, lab, RT, psych nurse, social media editor, dairy management specialist, teacher, ship officer, caseworker protective services)? Give summary @ -no Was smoking cessation discussed for >3mins.? @ -no Was critical care preformed (if so, how long)? @ -no Were there social determinants of health that impacted care today? How? (Homelessness, low income, unemployed, alcoholism, drug addiction, transportation, low edu. Level, literacy, decrease access to med. care, senior care, rehab)? @ -none Was there de-escalation of care discussed even if they declined (Discuss DNR or withdrawal of care, Hospice)? DNR status @ -no What co-morbidities impacted this encounter? (DM, HTN, Smoking, COPD, CAD, Cancer, CVA, ARF, Chemo, Hep., AIDS, mental health diagnosis, sleep apnea, morbid obesity)? @ -none Was patient admitted / discharged? Hospital course, mention meds given and route, prescriptions, significant lab abnormalities, going to OR and other pertinent info. @ - 74 male to ER for nausea and vomiting with resolved symptoms here in the ER feels well vitals are normal patient can be discharged home no abdominal pain Discharge Undiagnosed new problem with uncertain prognosis? @ -no Drug Therapy requiring intensive monitoring for toxicity (Heparin, Nitro, Insulin, Cardizem)? @ -no Were any procedures done? @ -no Diagnosis/symptom? @ -Nausea vomiting abdominal pain Acute, or Chronic, or Acute on Chronic? @ -Acute Uncomplicated (without systemic symptoms) or Complicated (systemic symptoms)? @ -Complicated Side effects of treatment? @ -no Exacerbation, Progression, or Severe Exacerbation? @ -exacerbation Poses a threat to life or bodily function? How? (Chest pain, [place], [place], pneumonia, PE, COPD, DKA, ARF, appy, cholecystitis, CVA, Diverticulitis, Homicidal, Suicidal, threat to staff... and all critical care pts) @ -yes extremes of (Miquel Collins) Medical Decision Making <Hilda Gerber - Last Filed: 06/12/24 12:35> - Lab Data Result diagrams: 06/12/24 13:32 06/12/24 13:32 - EKG Data -: EKG Interpreted by Me (EKG is sinus bradycardia 56 GA 156 QRS 111 QTc 388) <Miquel Collins - Last Filed: 06/19/24 16:19> - Medical Decision Making I performed the quick note portion of this chart. Electronically signed by Hilda Gerber PA-C (Hilda Gerber) 74 male to ER for nausea and vomiting with resolved symptoms here in the ER f eels well vitals are normal patient can be discharged home no abdominal pain (Miquel Collins) - Lab Data Lab Results 06/12/24 06/12/24 06/12/24 Range/Units 13:32 13:32 13:32 WBC 5.6 (3.8-10.6) k/uL RBC 4.46 (4.30-5.90) m/uL Hgb 14.0 (13.0-17.5) gm/dL Hct 40.8 (39.0-53.0) % MCV 91.4 (80.0-100.0) fL MCH 31.4 (25.0-35.0) pg MCHC 34.4 (31.0-37.0) g/dL RDW 13.2 (11.5-15.5) % Plt Count 189 (150-450) k/uL MPV 10.2 Neutrophils % 74 % Lymphocytes % 19 % Monocytes % 3 % Eosinophils % 3 % Basophils % 0 % Neutrophils # 4.1 (1.3-7.7) k/uL Lymphocytes # 1.1 (1.0-4.8) k/uL Monocytes # 0.2 (0-1.0) k/uL Eosinophils # 0.2 (0-0.7) k/uL Basophils # 0.0 (0-0.2) k/uL Sodium 137 (137-145) mmol/L Potassium 4.5 (3.5-5.1) mmol/L Chloride 101 (98-107) mmol/L Carbon Dioxide 31 H (22-30) mmol/L Anion Gap 5 mmol/L BUN 13 (9-20) mg/dL Creatinine 1.02 (0.66-1.25) mg/dL Est GFR (CKD-EPI)AfAm 82 (>60 ml/min/1.73 sqM) Est GFR (CKD-EPI)NonAf 71 (>60 ml/min/1.73 sqM) Glucose 112 H (74-99) mg/dL Plasma Lactic Acid Elfego 0.8 (0.7-2.0) mmol/L Calcium 9.4 (8.4-10.2) mg/dL Magnesium (1.6-2.3) mg/dL Total Bilirubin 0.6 (0.2-1.3) mg/dL AST 26 (17-59) U/L ALT 20 (4-49) U/L Alkaline Phosphatase 84 (38-126) U/L Total Protein 6.7 (6.3-8.2) g/dL Albumin 4.3 (3.5-5.0) g/dL Lipase (23-300) U/L Influenza Type A (PCR) (Not Detectd) Influenza Type B (PCR) (Not Detectd) RSV (PCR) (Not Detectd) SARS-CoV-2 (PCR) (Not Detectd) 06/12/24 06/12/24 Range/Units 13:32 17:32 WBC (3.8-10.6) k/uL RBC (4.30-5.90) m/uL Hgb (13.0-17.5) gm/dL Hct (39.0-53.0) % MCV (80.0-100.0) fL MCH (25.0-35.0) pg MCHC (31.0-37.0) g/dL RDW (11.5-15.5) % Plt Count (150-450) k/uL MPV Neutrophils % % Lymphocytes % % Monocytes % % Eosinophils % % Basophils % % Neutrophils # (1.3-7.7) k/uL Lymphocytes # (1.0-4.8) k/uL Monocytes # (0-1.0) k/uL Eosinophils # (0-0.7) k/uL Basophils # (0-0.2) k/uL Sodium (137-145) mmol/L Potassium (3.5-5.1) mmol/L Chloride (98-107) mmol/L Carbon Dioxide (22-30) mmol/L Anion Gap mmol/L BUN (9-20) mg/dL Creatinine (0.66-1.25) mg/dL Est GFR (CKD-EPI)AfAm (>60 ml/min/1.73 sqM) Est GFR (CKD-EPI)NonAf (>60 ml/min/1.73 sqM) Glucose (74-99) mg/dL Plasma Lactic Acid Elfego (0.7-2.0) mmol/L Calcium (8.4-10.2) mg/dL Magnesium 2.1 (1.6-2.3) mg/dL Total Bilirubin (0.2-1.3) mg/dL AST (17-59) U/L ALT (4-49) U/L Alkaline Phosphatase (38-126) U/L Total Protein (6.3-8.2) g/dL Albumin (3.5-5.0) g/dL Lipase 39 (23-300) U/L Influenza Type A (PCR) Not Detected (Not Detectd) Influenza Type B (PCR) Not Detected (Not Detectd) RSV (PCR) Not Detected (Not Detectd) SARS-CoV-2 (PCR) Not Detected (Not Detectd) Disposition <Hilda Gerber - Last Filed: 06/12/24 12:35> Is patient prescribed a controlled substance at d/c from ED?: No Time of Disposition: 20:00 <Miquel Collins - Last Filed: 06/19/24 16:19> Clinical Impression: Nausea and vomiting, Dehydration Disposition: HOME SELF-CARE Condition: Good Instructions (If sedation given, give patient instructions): Acute Nausea and V omiting (ED) Referrals: Robert Anderson MD [Primary Care Provider] - 1-2 days
[2024-06-12 12:43] VITALS: BP 164/84; PULSE 68; RESP 18; TEMP 97.8
[2024-06-12 13:40] LABS: Basophils % (A) 0 %; Eosinophils # (A) 0.2 k/uL (0-0.7); Eosinophils % (A) 3 %; HCT 40.8 % (39.0-53.0); Lymphocytes # (A) 1.1 k/uL (1.0-4.8); Lymphocytes % (A) 19 %; MCH 31.4 pg (25.0-35.0); MCHC 34.4 g/dL (31.0-37.0); MCV 91.4 fL (80.0-100.0); Mean Platelet Volume 10.2; Monocytes # (A) 0.2 k/uL (0-1.0); Monocytes % (A) 3 %; Neutrophils # (A) 4.1 k/uL (1.3-7.7); Neutrophils % (A) 74 %; Platelet Count 189 k/uL (150-450); RBC 4.46 m/uL (4.30-5.90); RDW 13.2 % (11.5-15.5); WBC 5.6 k/uL (3.8-10.6)
[2024-06-12 13:52] LABS: ALT 20 U/L (4-49); AST 26 U/L (17-59); African American GFR (CKD) 82 (>60 ml/min/1.73 sqM); Albumin 4.3 g/dL (3.5-5.0); Alkaline Phosphatase 84 U/L (38-126); Anion Gap 5 mmol/L; Blood Urea Nitrogen 13 mg/dL (9-20); Calcium 9.4 mg/dL (8.4-10.2); Carbon Dioxide 31 mmol/L (22-30); Chloride 101 mmol/L (98-107); Glucose 112 mg/dL (74-99); Non-African American GFR(CKD) 71 (>60 ml/min/1.73 sqM); Potassium 4.5 mmol/L (3.5-5.1); Sodium 137 mmol/L (137-145); Total Bilirubin 0.6 mg/dL (0.2-1.3); Total Protein 6.7 g/dL (6.3-8.2)
[2024-06-12 14:16] LABS: Influenza A Not Detected (Not Detectd); Influenza B Not Detected (Not Detectd); RSV Not Detected (Not Detectd)
[2024-06-12] MEDS: PANTOPRAZOLE 40 MG/10 ML VIAL IVP STA (17:39)
[2024-06-12] MEDS: ONDANSETRON 4 MG/2 ML VIAL IVP STA (17:39)
[2024-06-12] MEDS: SODIUM CHLORIDE 0.9% 1,000 ML IV ONE (17:40)
[2024-06-12 17:52] LABS: Magnesium 2.1 mg/dL (1.6-2.3)
[2024-06-12] MEDS: ONDANSETRON 4 MG ODT STARTER PACK 2 TAB BTL PO STA (20:22)
== END 2024-06-12 20:31 | disposition home or self-care (01) ==
LOC: EC 12:16
DX: R11.2 Nausea with vomiting, unspecified (principal); E86.0 Dehydration; Z86.73 Personal history of transient ischemic attack (TIA), and cerebral infarction without residual deficits; Z87.891 Personal history of nicotine dependence
CPT/HCPCS: 36415; 93005; 80053; 83605; 83690; 83735; 85025; 87636; 99284; 96374; 96375; 96361; J2405; S0119; J2470

== ENCOUNTER 2024-07-04 04:51 | Emergency (ER) | payer MEDICARE ==
[2024-07-04 04:58] VITALS: BP 197/97; TEMP 98.6
--- NOTE | 2024-07-04 05:18 | ED ---
Nausea/Vomiting/Diarrhea HPI - General Chief complaint: Nausea/Vomiting/Diarrhea Stated complaint: NVD Time Seen by Provider: 07/04/24 05:10 Source: patient, RN notes reviewed, old records reviewed Mode of arrival: EMS Limitations: no limitations - History of Present Illness Initial comments: This is a 74-year-old male to the ER for evaluation patient presents today for evaluation of nausea vomiting diarrhea no abdominal pain just generalized weakness states he cannot keep anything down symptoms and going on for 2 to 3 days. No fevers. No known travel history no sick contacts no family members with history of similar MD complaint: nausea, vomiting, diarrhea -: days(s) (2) Description of Vomiting: watery Description of Diarrhea: water Associated Abdominal Pain: Yes Location: diffuse Radiation: none Severity: mild Severity scale (1-10): 1 Consistency: intermittent Improves with: none Worsens with: eating Context: other (0) Associated Symptoms: loss of appetite, malaise, nausea/vomiting, weakness - Related Data Home Medications Medication Instructions Recorded Confirmed Gabapentin 600 mg PO TID PRN 10/24/19 06/12/24 HYDROcodone/APAP 10-325MG [[place] 1 tab PO TID PRN 08/25/21 06/12/24 10-325] Zolpidem [Ambien] 10 mg PO HS PRN 08/25/21 06/12/24 tadalafiL [Cialis] 20 mg PO DAILY PRN 08/25/21 06/12/24 Aspirin 81 mg PO DIRECTED 06/12/24 06/12/24 Atorvastatin [Lipitor] 80 mg PO DIRECTED 06/12/24 06/12/24 Clopidogrel [Plavix] 75 mg PO DIRECTED 06/12/24 06/12/24 Losartan [Cozaar] 100 mg PO DIRECTED 06/12/24 06/12/24 Allergies Allergy/AdvReac Type Severity Reaction Status Date / Time No Known Allergies Allergy Verified 07/04/24 04:57 Review of Systems ROS Statement: Those systems with pertinent positive or pertinent negative responses have been documented in the HPI. ROS Other: All systems not noted in ROS Statement are negative. Past Medical History Past Medical History: Fibromyalgia, Hyperlipidemia, Hypertension, Osteoarthritis (OA) Additional Past Medical History / Comment(s): insomnia, neck pain, donated left kidney 2003. History of Any Multi-Drug Resistant Organisms: None Reported Past Surgical History: Orthopedic Surgery Additional Past Surgical History / Comment(s): bilateral ACL repair. left kidney removed and donated, cervical spine surgery Past Anesthesia/Blood Transfusion Reactions: No Reported Reaction Past Psychological History: Anxiety Smoking Status: Former smoker Past Alcohol Use History: None Reported Past Drug Use History: Marijuana - Past Family History Mother Family Medical History: Osteoarthritis (OA) Sister(s) Family Medical History: Cancer General Exam Limitations: no limitations General appearance: alert, in no apparent distress Head exam: Present: atraumatic, normocephalic, normal inspection Eye exam: Present: normal appearance, PERRL, EOMI. Absent: scleral icterus, conjunctival injection, periorbital swelling ENT exam: Present: normal exam, mucous membranes moist Neck exam: Present: normal inspection. Absent: tenderness, meningismus, lymphadenopathy Respiratory exam: Present: normal lung sounds bilaterally. Absent: respiratory distress, wheezes, rales, rhonchi, stridor Cardiovascular Exam: Present: regular rate, normal rhythm, normal heart sounds. Absent: systolic murmur, diastolic murmur, rubs, gallop, clicks GI/Abdominal exam: Present: soft, normal bowel sounds. Absent: distended, tenderness, guarding, rebound, rigid Extremities exam: Present: normal inspection, full ROM, normal capillary refill. Absent: tenderness, pedal edema, joint swelling, calf tenderness Back exam: Present: normal inspection Neurological exam: Present: alert, oriented X3, CN II-XII intact Psychiatric exam: Present: normal affect, normal mood Skin exam: Present: warm, dry, intact, normal color. Absent: rash Course Vital Signs 07/04/24 07/04/24 04:52 06:19 Temperature 98.6 F 98.6 F Pulse Rate 74 66 Respiratory 20 17 Rate Blood Pressure 197/97 O2 Sat by Pulse 99 99 Oximetry - Reevaluation(s) Reevaluation #1: Medical records reviewed Reevaluation #2: Patient's symptoms improved Reevaluation #3: Patient informed of results questions answered Reevaluation #4: Was pt. sent in by a medical professional or institution (, PA, PIPE FITTER HELPER, urgent care, hospital, or prison...) When possible be specific @ -no Did you speak to anyone other than the patient for history (EMS, parent, family, police, friend...)? What history was obtained from this source @ -no Did you review nursing and triage notes (agree or disagree)? Why? @ -agree Are old charts reviewed (outside hosp., previous admission, EMS record, old EKG, old radiological studies, urgent care reports/EKG's, prison records)? Report findings @ -yes Differential Diagnosis (chest pain, altered mental status, abdominal pain women, abdominal pain men, vaginal bleeding, weakness, fever, dyspnea, syncope, headache, dizziness, GI bleed, back pain, seizure, CVA, palpatations, mental health, musculoskeletal)? @ -prior EKG interpreted by me (3pts min.). @ -yes X-rays interpreted by me (1pt min.). @ -no CT interpreted by me (1pt min.). @ -no U/S interpreted by me (1pt. min.). @ -no What testing was considered but not performed or refused? (CT, X-rays, U/S, labs)? Why? @ -none What meds were considered but not given or refused? Why? @ -none Did you discuss the management of the patient with other professionals (professionals i.e. , PA, PIPE FITTER HELPER, lab, RT, psych nurse, social media senior associate, director of science, teacher, foreign policy officer, case reviewer)? Give summary @ -no Was smoking cessation discussed for >3mins.? @ -no Was critical care preformed (if so, how long)? @ -no Were there social determinants of health that impacted care today? How? (Homelessness, low income, unemployed, alcoholism, drug addiction, transportation, low edu. Level, literacy, decrease access to med. care, [facility], rehab)? @ -none Was there de-escalation of care discussed even if they declined (Discuss DNR or withdrawal of care, Hospice)? DNR status @ -no What co-morbidities impacted this encounter? (DM, HTN, Smoking, COPD, CAD, Cancer, CVA, ARF, Chemo, Hep., AIDS, mental health diagnosis, sleep apnea, morbid obesity)? @ -none Was patient admitted / discharged? Hospital course, mention meds given and route, prescriptions, significant lab abnormalities, going to OR and other pertinent info. @ - 74 male to the ER for evaluation today patient is here for nausea vomiting diarrhea and dehydration all symptoms are resolved feels well and can be discharged home Discharged Undiagnosed new problem with uncertain prognosis? @ -no Drug Therapy requiring intensive monitoring for toxicity (Heparin, Nitro, Insulin, Cardizem)? @ -no Were any procedures done? @ -no Diagnosis/symptom? @ -Nausea vomiting diarrhea dehydration Acute, or Chronic, or Acute on Chronic? @ -Acute Uncomplicated (without systemic symptoms) or Complicated (systemic symptoms)? @ -Complicated Side effects of treatment? @ -no Exacerbation, Progression, or Severe Exacerbation? @ -exacerbation Poses a threat to life or bodily function? How? (Chest pain, [place], [place], pneumonia, PE, COPD, DKA, ARF, appy, cholecystitis, CVA, Diverticulitis, Homicidal, Suicidal, threat to staff... and all critical care pts) @ -yes extremes of age Medical Decision Making - Medical Decision Making 74 male to the ER for evaluation today patient is here for nausea vomiting diarrhea and dehydration all symptoms are resolved feels well and can be discharged home - Lab Data Result diagrams: 07/04/24 05:26 07/04/24 05:26 Lab Results 07/04/24 07/04/24 07/04/24 Range/Units 05:26 05:26 05:26 WBC 7.65 (4.50-10.00) 10*3/uL RBC 4.47 (4.40-5.60) 10*6/uL Hgb 14.2 (13.0-17.0) g/dL Hct 40.5 (39.6-50.0) % MCV 90.6 (80.0-97.0) fL MCH 31.8 (27.0-32.0) pg MCHC 35.1 (32.0-37.0) g/dL Plt Count 256 (140-440) 10*3/uL MPV 11.6 (9.5-12.2) fL Immature Gran % (Auto) 0.1 % Neutrophils % 81.3 % Lymphocytes % 15.2 % Monocytes % 2.9 % Eosinophils % 0.1 % Basophils % 0.4 % Immature Gran # 0.01 (0.00-0.04) 10*3/uL Neutrophils # 6.22 (1.80-7.70) 10*3/uL Lymphocytes # 1.16 (0.90-5.00) 10*3/uL Monocytes # 0.22 (0.20-1.00) 10*3/uL Eosinophils # 0.01 L (0.04-0.35) 10*3/uL Basophils # 0.03 (0.00-0.10) 10*3/uL PT 11.0 (10.0-12.5) sec INR 1.0 (<1.2) APTT 21.2 L (22.0-30.0) sec Sodium 137 (137-145) mmol/L Potassium 3.7 (3.5-5.1) mmol/L Chloride 106 (98-107) mmol/L Carbon Dioxide 19 L (22-30) mmol/L Anion Gap 12 mmol/L BUN 13 (9-20) mg/dL Creatinine 0.65 L (0.66-1.25) mg/dL Est GFR (CKD-EPI)AfAm >90 (>60 ml/min/1.73 sqM) Est GFR (CKD-EPI)NonAf >90 (>60 ml/min/1.73 sqM) Glucose 146 H (74-99) mg/dL Plasma Lactic Acid Elfego (0.7-2.0) mmol/L Calcium 9.4 (8.4-10.2) mg/dL Phosphorus 3.0 (2.5-4.5) mg/dL Magnesium 1.8 (1.6-2.3) mg/dL Total Bilirubin 1.0 (0.2-1.3) mg/dL AST 26 (17-59) U/L ALT 28 (4-49) U/L Alkaline Phosphatase 73 (38-126) U/L Troponin I (0.000-0.034) ng/mL Total Protein 7.0 (6.3-8.2) g/dL Albumin 4.4 (3.5-5.0) g/dL Lipase 218 (23-300) U/L 07/04/24 07/04/24 Range/Units 05:26 05:26 WBC (4.50-10.00) 10*3/uL RBC (4.40-5.60) 10*6/uL Hgb (13.0-17.0) g/dL Hct (39.6-50.0) % MCV (80.0-97.0) fL MCH (27.0-32.0) pg MCHC (32.0-37.0) g/dL Plt Count (140-440) 10*3/uL MPV (9.5-12.2) fL Immature Gran % (Auto) % Neutrophils % % Lymphocytes % % Monocytes % % Eosinophils % % Basophils % % Immature Gran # (0.00-0.04) 10*3/uL Neutrophils # (1.80-7.70) 10*3/uL Lymphocytes # (0.90-5.00) 10*3/uL Monocytes # (0.20-1.00) 10*3/uL Eosinophils # (0.04-0.35) 10*3/uL Basophils # (0.00-0.10) 10*3/uL PT (10.0-12.5) sec INR (<1.2) APTT (22.0-30.0) sec Sodium (137-145) mmol/L Potassium (3.5-5.1) mmol/L Chloride (98-107) mmol/L Carbon Dioxide (22-30) mmol/L Anion Gap mmol/L BUN (9-20) mg/dL Creatinine (0.66-1.25) mg/dL Est GFR (CKD-EPI)AfAm (>60 ml/min/1.73 sqM) Est GFR (CKD-EPI)NonAf (>60 ml/min/1.73 sqM) Glucose (74-99) mg/dL Plasma Lactic Acid Elfego 2.0 (0.7-2.0) mmol/L Calcium (8.4-10.2) mg/dL Phosphorus (2.5-4.5) mg/dL Magnesium (1.6-2.3) mg/dL Total Bilirubin (0.2-1.3) mg/dL AST (17-59) U/L ALT (4-49) U/L Alkaline Phosphatase (38-126) U/L Troponin I <0.012 (0.000-0.034) ng/mL Total Protein (6.3-8.2) g/dL Albumin (3.5-5.0) g/dL Lipase (23-300) U/L - EKG Data -: EKG Interpreted by Me (EKG is sinus 70 ME 145 QRS 108 QTc 419) Disposition Clinical Impression: Nausea and vomiting, Dehydration Disposition: HOME SELF-CARE Condition: Good Instructions (If sedation given, give patient instructions): Acute Nausea and Vomiting (ED) Is patient prescribed a controlled substance at d/c from ED?: No Referrals: Robert Anderson MD [Primary Care Provider] - 1-2 days Time of Disposition: 06:00
[2024-07-04 05:32] LABS: Basophils # (A) 0.03 10*3/uL (0.00-0.10); Basophils % (A) 0.4 %; Eosinophils # (A) 0.01 10*3/uL (0.04-0.35); Eosinophils % (A) 0.1 %; HCT 40.5 % (39.6-50.0); HGB 14.2 g/dL (13.0-17.0); Lymphocytes # (A) 1.16 10*3/uL (0.90-5.00); Lymphocytes % (A) 15.2 %; MCH 31.8 pg (27.0-32.0); MCHC 35.1 g/dL (32.0-37.0); MCV 90.6 fL (80.0-97.0); Mean Platelet Volume 11.6 fL (9.5-12.2); Monocytes # (A) 0.22 10*3/uL (0.20-1.00); Monocytes % (A) 2.9 %; Neutrophils # (A) 6.22 10*3/uL (1.80-7.70); Neutrophils % (A) 81.3 %; Platelet Count 256 10*3/uL (140-440); RBC 4.47 10*6/uL (4.40-5.60); RDW 13.4 % (11.5-14.5); WBC 7.65 10*3/uL (4.50-10.00)
[2024-07-04] MEDS: SODIUM CHLORIDE 0.9% 1,000 ML IV ONE (05:32)
[2024-07-04] MEDS: ONDANSETRON 4 MG/2 ML VIAL IVP STA (05:34)
[2024-07-04] MEDS: PANTOPRAZOLE 40 MG/10 ML VIAL IVP STA (05:35)
[2024-07-04] MEDS: LORazepam 2 MG/ML INJ IV STA (05:36)
[2024-07-04] MEDS: SODIUM CHLORIDE 0.9% 1,000 ML IV SCH (05:38)
[2024-07-04 05:45] LABS: ALT 28 U/L (4-49); AST 26 U/L (17-59); African American GFR (CKD) >90 (>60 ml/min/1.73 sqM); Albumin 4.4 g/dL (3.5-5.0); Alkaline Phosphatase 73 U/L (38-126); Anion Gap 12 mmol/L; Blood Urea Nitrogen 13 mg/dL (9-20); Calcium 9.4 mg/dL (8.4-10.2); Carbon Dioxide 19 mmol/L (22-30); Chloride 106 mmol/L (98-107); Glucose 146 mg/dL (74-99); Lipase 218 U/L (23-300); Magnesium 1.8 mg/dL (1.6-2.3); Non-African American GFR(CKD) >90 (>60 ml/min/1.73 sqM); Potassium 3.7 mmol/L (3.5-5.1); Sodium 137 mmol/L (137-145)
[2024-07-04 05:58] LABS: Partial Thromboplastin Time 21.2 sec (22.0-30.0)
[2024-07-04] MEDS: ONDANSETRON 4 MG ODT STARTER PACK 2 TAB BTL PO STA (06:17)
[2024-07-04 06:21] VITALS: PULSE 66; RESP 17
== END 2024-07-04 06:29 | disposition home or self-care (01) ==
LOC: EC 04:51
DX: R11.2 Nausea with vomiting, unspecified (principal); E86.0 Dehydration; Z87.891 Personal history of nicotine dependence
CPT/HCPCS: 36415; 93005; 80053; 83605; 83690; 83735; 84100; 84484; 85025; 85610; 85730; 99284; 96374; 96375; 96361; J2060; J2405; S0119; J2470

== ENCOUNTER 2024-07-24 13:06 | Observation (INO) | payer MEDICARE ==
[2024-07-24] MEDS: SODIUM CHLORIDE 0.9% 1,000 ML IV STA (14:07)
[2024-07-24 14:14] LABS: Basophils # (A) 0.03 10*3/uL (0.00-0.10); Basophils % (A) 0.4 %; Eosinophils # (A) 0.02 10*3/uL (0.04-0.35); Eosinophils % (A) 0.2 %; HCT 42.7 % (39.6-50.0); HGB 15.4 g/dL (13.0-17.0); Lymphocytes # (A) 1.28 10*3/uL (0.90-5.00); Lymphocytes % (A) 15.5 %; MCH 32.5 pg (27.0-32.0); MCHC 36.1 g/dL (32.0-37.0); MCV 90.1 fL (80.0-97.0); Mean Platelet Volume 12.3 fL (9.5-12.2); Monocytes # (A) 0.49 10*3/uL (0.20-1.00); Monocytes % (A) 5.9 %; Neutrophils % (A) 77.8 %; Platelet Count 226 10*3/uL (140-440); RBC 4.74 10*6/uL (4.40-5.60); RDW 13.1 % (11.5-14.5); WBC 8.24 10*3/uL (4.50-10.00)
--- NOTE | 2024-07-24 14:17 | ED ---
Nausea/Vomiting/Diarrhea HPI - General Chief complaint: Nausea/Vomiting/Diarrhea Stated complaint: Vomiting Time Seen by Provider: 07/24/24 13:15 Source: patient, RN notes reviewed Mode of arrival: ambulatory Limitations: no limitations - History of Present Illness Initial comments: 74-year-old male presents emergency department from PCPs office chief complaint of intractable nausea vomiting. This been a recurrent issue he been seen in the emergency department several times. Patient was sent in to be admitted for IV hydration. Patient denies any localized abdominal pain. Patient denies any dysuria hematuria patient states he is having diarrhea no melanotic stools. No fevers or chills no chest pain or shortness of breath. - Related Data Home Medications Medication Instructions Recorded Confirmed Aspirin 81 mg PO DAILY 06/12/24 07/24/24 Atorvastatin [Lipitor] 80 mg PO HS 06/12/24 07/24/24 Losartan [Cozaar] 25 mg PO DAILY 07/25/24 07/25/24 Allergies Allergy/AdvReac Type Severity Reaction Status Date / Time No Known Allergies Allergy Verified 07/24/24 17:21 Review of Systems ROS Statement: Those systems with pertinent positive or pertinent negative responses have been documented in the HPI. ROS Other: All systems not noted in ROS Statement are negative. Past Medical History Past Medical History: Fibromyalgia, Hyperlipidemia, Hypertension, Osteoarthritis (OA) Additional Past Medical History / Comment(s): insomnia, neck pain, donated left kidney 2003. History of Any Multi-Drug Resistant Organisms: None Reported Past Surgical History: Orthopedic Surgery Additional Past Surgical History / Comment(s): bilateral ACL repair. left kidney removed and donated, cervical spine surgery Past Anesthesia/Blood Transfusion Reactions: No Reported Reaction Past Psychological History: Anxiety Smoking Status: Former smoker Past Alcohol Use History: None Reported Past Drug Use History: Marijuana - Past Family History Mother Family Medical History: Osteoarthritis (OA) Sister(s) Family Medical History: Cancer General Exam Limitations: no limitations General appearance: alert, in no apparent distress Head exam: Present: atraumatic, normocephalic, normal inspection Eye exam: Present: normal appearance, PERRL, EOMI. Absent: scleral icterus, conjunctival injection, periorbital swelling ENT exam: Present: normal exam, normal oropharynx, mucous membranes moist Neck exam: Present: normal inspection, full ROM. Absent: tenderness, meningismus, lymphadenopathy Respiratory exam: Present: normal lung sounds bilaterally. Absent: respiratory distress, wheezes, rales, rhonchi, stridor Cardiovascular Exam: Present: regular rate, normal rhythm, normal heart sounds. Absent: systolic murmur, diastolic murmur, rubs, gallop, clicks GI/Abdominal exam: Present: soft, normal bowel sounds. Absent: distended, tenderness, guarding, rebound, rigid Course Vital Signs 07/24/24 07/24/24 07/24/24 13:09 16:09 20:27 Temperature 97.7 F 98.2 F Pulse Rate 80 76 76 Respiratory 18 16 18 Rate Blood Pressure 183/91 182/87 189/94 O2 Sat by Pulse 99 96 98 Oximetry Medical Decision Making - Medical Decision Making Was pt. sent in by a medical professional or institution (, PA, NEIGHBORHOOD SERVICE CENTER DIRECTOR, urgent care, hospital, or fpc...) When possible be specific @ -PCP Did you speak to anyone other than the patient for history (EMS, parent, family, police, friend...)? What history was obtained from this source @ -No Did you review nursing and triage notes (agree or disagree)? Why? @ -I reviewed and agree with nursing and triage notes Were old charts reviewed (outside hosp., previous admission, EMS record, old EKG, old radiological studies, urgent care reports/EKG's, fpc records)? Report findings @ -No old charts were reviewed Differential Diagnosis (chest pain, altered mental status, abdominal pain women, abdominal pain men, vaginal bleeding, weakness, fever, dyspnea, syncope, he adache, dizziness, GI bleed, back pain, seizure, CVA, palpatations, mental health, musculoskeletal)? @Differential Abdominal Pain Men: Appendicitis, cholecystitis, diverticulosis, ischemic bowel, pancreatitis, hepatitis, UTI, gastroenteritis, AAA, incarcerated hernia, bowel obstruction, constipation, inflammatory bowel, hepatitis, peptic ulcer disease, splenic infarction, perforated viscus, testicular torsion, this is not meant to be an all-inclusive list EKG interpreted by me (3pts min.). @ -None X-rays interpreted by me (1pt min.). @ -None done CT interpreted by me (1pt min.). @ -None done U/S interpreted by me (1pt. min.). @ -None done What testing was considered but not performed or refused? (CT, X-rays, U/S, labs)? Why? @ -None What meds were considered but not given or refused? Why? @ -None Did you discuss the management of the patient with other professionals (professionals i.e. , PA, NEIGHBORHOOD SERVICE CENTER DIRECTOR, lab, RT, psych nurse, social work administrator, bullet slugs inspector, teacher, worldwide chief creative officer, field nurse case manager)? Give summary @ -Dr. Anderson for admission Was smoking cessation discussed for >3mins.? @ -No Was critical care preformed (if so, how long)? @ -No Were there social determinants of health that impacted care today? How? (Homelessness, low income, unemployed, alcoholism, drug addiction, transportation, low edu. Level, literacy, decrease access to med. care, long-term, rehab)? @ -No Was there de-escalation of care discussed even if they declined (Discuss DNR or withdrawal of care, Hospice)? DNR status @ -No What co-morbidities impacted this encounter? (DM, HTN, Smoking, COPD, CAD, Cancer, CVA, ARF, Chemo, Hep., AIDS, mental health diagnosis, sleep apnea, morbid obesity)? @ -None Was patient admitted / discharged? Hospital course, mention meds given and route, prescriptions, significant lab abnormalities, going to OR and other pertinent info. @ -Admitted patient had recurrent hospitalization, ER visits for nausea vomiting patient be admitted for dehydration and symptomatic control. Undiagnosed new problem with uncertain prognosis? @ -No Drug Therapy requiring intensive monitoring for toxicity (Heparin, Nitro, Insulin, Cardizem)? @ -No Were any procedures done? @ -No Diagnosis/symptom? @ -Nausea vomiting Acute, or Chronic, or Acute on Chronic? @ -Acute Uncomplicated (without systemic symptoms) or Complicated (systemic symptoms)? @ -[Uncomplicated Side effects of treatment? @ -No Exacerbation, Progression, or Severe Exacerbation? @ -No Poses a threat to life or bodily function? How? (Chest pain, USA, NH, pneumonia, PE, COPD, DKA, ARF, appy, cholecystitis, CVA, Diverticulitis, Homicidal, Suicidal, threat to staff... and all critical care pts) @ -No - Lab Data Result diagrams: 07/24/24 14:06 07/25/24 04:25 Lab Results 07/24/24 07/24/24 07/24/24 Range/Units 13:32 14:06 14:06 WBC 8.24 (4.50-10.00) 10*3/uL RBC 4.74 (4.40-5.60) 10*6/uL Hgb 15.4 (13.0-17.0) g/dL Hct 42.7 (39.6-50.0) % MCV 90.1 (80.0-97.0) fL MCH 32.5 H (27.0-32.0) pg MCHC 36.1 (32.0-37.0) g/dL Plt Count 226 (140-440) 10*3/uL MPV 12.3 H (9.5-12.2) fL Immature Gran % (Auto) 0.2 % Neutrophils % 77.8 % Lymphocytes % 15.5 % Monocytes % 5.9 % Eosinophils % 0.2 % Basophils % 0.4 % Immature Gran # 0.02 (0.00-0.04) 10*3/uL Neutrophils # 6.40 (1.80-7.70) 10*3/uL Lymphocytes # 1.28 (0.90-5.00) 10*3/uL Monocytes # 0.49 (0.20-1.00) 10*3/uL Eosinophils # 0.02 L (0.04-0.35) 10*3/uL Basophils # 0.03 (0.00-0.10) 10*3/uL Sodium 138 (137-145) mmol/L Potassium 3.7 (3.5-5.1) mmol/L Chloride 103 (98-107) mmol/L Carbon Dioxide 24 (22-30) mmol/L Anion Gap 11 mmol/L BUN 13 (9-20) mg/dL Creatinine 0.73 (0.66-1.25) mg/dL Est GFR (CKD-EPI)AfAm >90 (>60 ml/min/1.73 sqM) Est GFR (CKD-EPI)NonAf >90 (>60 ml/min/1.73 sqM) Glucose 108 H (74-99) mg/dL Calcium 10.1 (8.4-10.2) mg/dL Magnesium 1.8 (1.6-2.3) mg/dL Total Bilirubin 1.1 (0.2-1.3) mg/dL AST 24 (17-59) U/L ALT 21 (4-49) U/L Alkaline Phosphatase 67 (38-126) U/L Total Protein 7.4 (6.3-8.2) g/dL Albumin 4.6 (3.5-5.0) g/dL Lipase 119 (23-300) U/L Urine Color Light Yellow Urine Appearance Clear (Clear) Urine pH 7.0 (5.0-8.0) Ur Specific Witt 1.019 (1.001-1.035) Urine Protein Trace H (Negative) Urine Glucose (UA) Negative (Negative) Urine Ketones Trace H (Negative) Urine Blood Negative (Negative) Urine Nitrite Negative (Negative) Urine Bilirubin Negative (Negative) Urine Urobilinogen <2.0 (<2.0) mg/dL Ur Leukocyte Esterase Negative (Negative) Disposition Clinical Impression: Intractable nausea and vomiting, Dehydration Disposition: ADMITTED IP TO THIS [facility] Condition: Fair Time of Disposition: 14:58
[2024-07-24 14:25] LABS: ALT 21 U/L (4-49); AST 24 U/L (17-59); African American GFR (CKD) >90 (>60 ml/min/1.73 sqM); Albumin 4.6 g/dL (3.5-5.0); Alkaline Phosphatase 67 U/L (38-126); Anion Gap 11 mmol/L; Blood Urea Nitrogen 13 mg/dL (9-20); Calcium 10.1 mg/dL (8.4-10.2); Carbon Dioxide 24 mmol/L (22-30); Chloride 103 mmol/L (98-107); Glucose 108 mg/dL (74-99); Lipase 119 U/L (23-300); Magnesium 1.8 mg/dL (1.6-2.3); Non-African American GFR(CKD) >90 (>60 ml/min/1.73 sqM); Potassium 3.7 mmol/L (3.5-5.1); Sodium 138 mmol/L (137-145); Total Bilirubin 1.1 mg/dL (0.2-1.3); Total Protein 7.4 g/dL (6.3-8.2)
[2024-07-24] MEDS: PROCHLORPERAZINE INJ 10 MG/2 ML VIAL IVP STA (14:52)
[2024-07-24] MEDS ORDERED: ONDANSETRON 4 MG/2 ML VIAL IVP PRN (14:58)
[2024-07-24] MEDS ORDERED: NALOXONE 0.4 MG/ML 1 ML VIAL IV PRN (14:58)
[2024-07-24] MEDS: SODIUM CHLORIDE 0.9% 1,000 ML IV SCH (16:04)
[2024-07-24] MEDS: PANTOPRAZOLE 40 MG/10 ML VIAL IVP SCH (16:05)
[2024-07-24] MEDS ORDERED: PROCHLORPERAZINE INJ 10 MG/2 ML VIAL IVP PRN (21:50)
[2024-07-24] MEDS ORDERED: Magnesium Replacement Protocol 1 EACH MISC MISCELLANE PRN (21:51)
[2024-07-24] MEDS: LOSARTAN 50 MG TAB PO SCH (22:17)
[2024-07-24] MEDS: ATORVASTATIN 80 MG TAB PO SCH (22:17)
[2024-07-24] MEDS: MAGNESIUM SULFATE-D5W PMX 1 GM in DEXTROSE/WATER 1 100ML.BAG IVPB ONE (22:17)
[2024-07-24 22:54] LABS: Appearance,Urine Clear (Clear); Bilirubin,Urine Negative (Negative); Blood,Urine Negative (Negative); Color,Urine Light Yellow; Glucose,Urine (UA) Negative (Negative); Ketones,Urine Trace (Negative); Leukocyte Esterase,Urine Negative (Negative); Nitrite,Urine Negative (Negative); Protein,Urine Trace (Negative); Specific Gravity,Urine 1.019 (1.001-1.035); Urobilinogen,Urine <2.0 mg/dL (<2.0)
[2024-07-25 09:07] LABS: BUN/Creat Ratio 14.86 Ratio (12.00-20.00); Blood Urea Nitrogen 10.4 mg/dL (9.0-27.0); Calcium 8.9 mg/dL (8.7-10.3); Carbon Dioxide 18.2 mmol/L (21.6-31.8); Chloride 108 mmol/L (96-109); Glucose 107 mg/dL (70-110); Potassium 3.4 mmol/L (3.5-5.5); Sodium 141 mmol/L (135-145)
[2024-07-25] MEDS: ASPIRIN 81 MG PO SCH (09:34)
--- NOTE | 2024-07-25 14:39 | P.CONS ---
History of Present Illness - Reason for Consult Consult date: 07/25/24 Intractable nausea and vomiting Requesting physician: Jane Olea - Chief Complaint Nausea and vomiting - History of Present Illness This a pleasant 74-year-old male with a past medical history including fibromyalgia, hyperlipidemia, hypertension, osteoarthritis, chronic back pain and neck pain as well as longstanding history of intermittent nausea and vomiting which he states has been going on for at least the past 5 years which he states can occur anywhere from 1-4 times a year. He states the episodes usually only last about an hour if that. Mostly occurs in the evening. States he will will start feeling nauseous and then he grabs a garbage can and will vomit repetitively till he feels that he cannot vomit anymore. Denies any hematemesis no coffee-ground emesis and no associated abdominal pain. He states this occurred about 2 weeks ago lasted again for short period and then reoccurred couple days ago where he had 2 episodes of vomiting spells that day which prompted his emergency room evaluation. He was admitted for IV hydration. He states he has not had any formal workup in the past. He has not undergone an upper endoscopy in the past but states he has had a colonoscopy about 3 years ago which she states was normal. He denies any new medications. Denies any acid reflux. Patient states he has not had any vomiting since prior to coming into the hospital. Denies any nausea, no abdominal pain, no fevers or chills. No diarrhea. He denies any anxiety. Review of Systems REVIEW OF SYSTEMS: CARDIOPULMONARY: No chest pain or shortness of breath. Gastrointestinal: No abdominal pain. Nausea and vomiting, intermittent. No hematemesis, coffee-ground emesis. No rectal bleeding, or melena. GENITOURINARY: No dysuria or hematuria. MUSCULOSKELETAL: Reports normal range of motion., Joint pain. Neck pain. SKIN: No rashes. No jaundice. ENDOCRINE: No chills, fevers. No excessive weight gain or loss. No polydipsia or polyuria. PSYCHIATRIC: Unremarkable. NEUROLOGY: No change in mental status. Denies dizziness, headache. ENT: Vision unremarkable. CONSTITUTIONAL: No recent weight loss. No fever, chills, night sweats. Past Medical History Past Medical History: Fibromyalgia, Hyperlipidemia, Hypertension, Osteoarthritis (OA) Additional Past Medical History / Comment(s): insomnia, neck pain, donated left kidney 2003. History of Any Multi-Drug Resistant Organisms: None Reported Past Surgical History: Orthopedic Surgery Additional Past Surgical History / Comment(s): bilateral ACL repair. left kidney removed and donated, cervical spine surgery Past Anesthesia/Blood Transfusion Reactions: No Reported Reaction Past Psychological History: Anxiety Smoking Status: Former smoker Past Alcohol Use History: None Reported Past Drug Use History: Marijuana Additional Drug Use History / Comment(s): occasional - Past Family History Mother Family Medical History: Osteoarthritis (OA) Sister(s) Family Medical History: Cancer Medications and Allergies Home Medications Medication Instructions Recorded Confirmed Type Aspirin 81 mg PO DAILY 06/12/24 07/24/24 History Atorvastatin [Lipitor] 80 mg PO HS 06/12/24 07/24/24 History Losartan [Cozaar] 25 mg PO DAILY 07/25/24 07/25/24 History Allergies Allergy/AdvReac Type Severity Reaction Status Date / Time No Known Allergies Allergy Verified 07/24/24 17:21 Physical Exam Vitals: Vital Signs Temp Pulse Pulse Resp BP BP BP 07/25/24 07:00 98.0 F 80 17 157/84 07/25/24 00:34 97.9 F 73 16 155/74 07/24/24 21:27 78 07/24/24 21:09 97.7 F 78 17 206/99 07/24/24 20:27 98.2 F 76 18 189/94 07/24/24 16:09 76 16 182/87 07/24/24 13:09 97.7 F 80 18 183/91 Pulse Ox 07/25/24 07:00 97 07/25/24 00:34 99 07/24/24 21:27 07/24/24 21:09 95 07/24/24 20:27 98 07/24/24 16:09 96 07/24/24 13:09 99 Intake and Output 07/24/24 07/25/24 07/25/24 22:59 06:59 14:59 Intake Total 118 Balance 118 Intake: Oral 118 Other: Voiding Method Toilet # Voids 2 2 # Bowel Movements 1 2 Weight 68.946 kg General appearance: The patient is alert, oriented, appears in no acute distress. HET: Head is normocephalic and atraumatic. Conjunctiva pink. Sclera anicteric. Neck: Supple without lymphadenopathy. Trachea midline. Heart: Regular. Lungs: Equal expansion, normal respiratory effort. Abdomen: Soft, nontender, nondistended. Skin: No rashes. No jaundice. Extremities: Normal skin color and turgor. No pedal edema. Neurological: No focal deficits. Alert and oriented x3. Results CBC & Chem 7: 07/24/24 14:06 07/25/24 04:25 Labs: Abnormal Lab Results - Last 24 Hours (Table) 07/24/24 07/24/24 07/24/24 Range/Units 13:32 14:06 14:06 MCH 32.5 H (27.0-32.0) pg MPV 12.3 H (9.5-12.2) fL Eosinophils # 0.02 L (0.04-0.35) 10*3/uL Potassium (3.5-5.5) mmol/L Carbon Dioxide (21.6-31.8) mmol/L Anion Gap (4.00-12.00) mmol/L Glucose 108 H (74-99) mg/dL Urine Protein Trace H (Negative) Urine Ketones Trace H (Negative) 07/25/24 Range/Units 04:25 MCH (27.0-32.0) pg MPV (9.5-12.2) fL Eosinophils # (0.04-0.35) 10*3/uL Potassium 3.4 L (3.5-5.5) mmol/L Carbon Dioxide 18.2 L (21.6-31.8) mmol/L Anion Gap 14.80 H (4.00-12.00) mmol/L Glucose (74-99) mg/dL Urine Protein (Negative) Urine Ketones (Negative) Assessment and Plan (1) Nausea and vomiting Narrative/Plan: 74-year-old male with longstanding history of intermittent nausea and vomiting with episodes that usually last less than an hour with multiple emesis without any hematemesis or coffee-ground emesis. Unclear etiology. Patient denies any anxiety however does have a history of anxiety noted in his chart. No new medications. Mostly occurs at night however also occasionally occurs during the day. May be secondary to GERD, need to consider possible peptic ulcer disease. No previous workup. Recommend direct visualization with upper endoscopy. Patient agreeable. Will plan for tomorrow. Current Visit: Yes Status: Acute Code(s): R11.2 - NAUSEA WITH VOMITING, UNSPECIFIED SNOMED Code(s): 00228292 Plan: 1. Continue symptomatic and supportive care 2. Patient may have regular diet, n.p.o. after midnight 3. Protonix 40 mg daily 4. Antiemetics as needed 5. Replace potassium per protocol 6. Will plan for upper endoscopy tomorrow afternoon Thank you for this consultation, we will continue to follow. Dr. Carina Knowles I agree with the dictator's note, documented as a scribe by Linda Doyle.
[2024-07-25] MEDS: POTASSIUM CHLORIDE ER 20 MEQ TAB.ER PO STA (15:49)
[2024-07-25] MEDS: HEPARIN SODIUM,PORCINE 5,000 UNIT/ML 1 ML VIAL SQ SCH (20:13)
--- NOTE | 2024-07-25 20:50 | P.HPIM ---
History of Present Illness H&P Date: 07/25/24 Chief Complaint: Nausea and vomiting Patient is a 74-year-old male with known history of hypertension, hyperlipidemia, osteoarthritis, history of TIA, fibromyalgia, anxiety and prior history of smoking and occasional marijuana use. Patient presented to ER with complaints of intractable nausea and vomiting. Patient states that he has been having intermittent episodes of nausea and vomiting for the past 5 years. Records about 1-5 times a year. Usually lasting about an hour mostly occurs in the evening. Otherwise denied any hematemesis. Mainly nonbilious. Last time it occurred about 2 weeks ago lasted short period of time. Had 2 episodes of vomiting and very nauseous which made him to come to ER. No prior history of EGD. Patient had a colonoscopy about 3 years ago which was normal as per patient. Patient was recently admitted to the hospital for TIA. He does use marijuana occasionally. Denied any chest pain or shortness of breath. No headache or dizziness or lightheadedness. No complaints of abdominal pain. No cough or sputum production. No fever no chills. No recent illnesses otherwise. Laboratory data show WBC 8.2 hemoglobin 15.4 and platelets 226 sodium 138 potassium 3.7 chloride 103 bicarb is 24 BUN 13 and creatinine 0.73 and blood sugar 108. Urinalysis is negative for infection. Review of Systems Constitutional: Patient denies any fever or chills . No generalized weakness or weight loss. Abdomen: Patient denied nausea vomiting and diarrhea and abdominal pain. Cardiovascular: Patient denies any chest pain or short of breath no palpitations. Respiratory: patient denied any cough or sputum production. No shortness of breath Neurologic: Patient denied any numbness or tingling. no headache. Musculoskeletal: Patient denies any complaints of joint swelling or deformity. Skin: Negative Psychiatric: Negative Endocrine: No heat or cold intolerance. No recent weight gain. Genitourinary: No dysuria or hematuria. All other 14 point ROS negative except the above Past Medical History Past Medical History: Fibromyalgia, Hyperlipidemia, Hypertension, Osteoarthritis (OA) Additional Past Medical History / Comment(s): insomnia, neck pain, donated left kidney 2003. History of Any Multi-Drug Resistant Organisms: None Reported Past Surgical History: Orthopedic Surgery Additional Past Surgical History / Comment(s): bilateral ACL repair. left kidney removed and donated, cervical spine surgery Past Anesthesia/Blood Transfusion Reactions: No Reported Reaction Past Psychological History: Anxiety Smoking Status: Former smoker Past Alcohol Use History: None Reported Past Drug Use History: Marijuana Additional Drug Use History / Comment(s): occasional - Past Family History Mother Family Medical History: Osteoarthritis (OA) Sister(s) Family Medical History: Cancer Medications and Allergies Home Medications Medication Instructions Recorded Confirmed Type Aspirin 81 mg PO DAILY 06/12/24 07/24/24 History Atorvastatin [Lipitor] 80 mg PO HS 06/12/24 07/24/24 History Losartan [Cozaar] 25 mg PO DAILY 07/25/24 07/25/24 History Allergies Allergy/AdvReac Type Severity Reaction Status Date / Time No Known Allergies Allergy Verified 07/24/24 17:21 Physical Exam Vitals: Vital Signs Temp Pulse Pulse Resp BP BP BP 07/25/24 07:00 98.0 F 80 17 157/84 07/25/24 00:34 97.9 F 73 16 155/74 07/24/24 21:27 78 07/24/24 21:09 97.7 F 78 17 206/99 07/24/24 20:27 98.2 F 76 18 189/94 07/24/24 16:09 76 16 182/87 07/24/24 13:09 97.7 F 80 18 183/91 Pulse Ox 07/25/24 07:00 97 07/25/24 00:34 99 07/24/24 21:27 07/24/24 21:09 95 07/24/24 20:27 98 07/24/24 16:09 96 07/24/24 13:09 99 Intake and Output 07/24/24 07/25/24 07/25/24 22:59 06:59 14:59 Intake Total 118 Balance 118 Intake: Oral 118 Other: Voiding Method Toilet # Voids 2 2 # Bowel Movements 1 2 Weight 68.946 kg PHYSICAL EXAMINATION: Patient is lying in the bed comfortably, no acute distress, awake alert and oriented.. HEENT: Normocephalic. Neck is supple. Pupils reactive. Nostrils clear. Oral cavity is moist. Neck reveals no JVD, carotid bruits, or thyromegaly. CHEST EXAMINATION: Trachea is central. Symmetrical expansion. Lung coates clear to auscultation and percussion. CARDIAC: Normal S1, S2 with no gallops. No murmurs ABDOMEN: Soft. Bowel sounds normal. No organomegaly. No abdominal bruits. Extremities: reveal no edema. No clubbing or cyanosis Neurologically awake, alert, oriented x 2-3 with well-coordinated movements. No focal deficits noted Skin: No rash or skin lesions. Psychiatric: Coperative. Nonsuicidal Musculoskeletal: No joint swelling or deformity. Normal range of motion. Results CBC & Chem 7: 07/24/24 14:06 07/25/24 04:25 Labs: Abnormal Lab Results - Last 24 Hours (Table) 07/24/24 07/24/24 07/24/24 Range/Units 13:32 14:06 14:06 MCH 32.5 H (27.0-32.0) pg MPV 12.3 H (9.5-12.2) fL Eosinophils # 0.02 L (0.04-0.35) 10*3/uL Potassium (3.5-5.5) mmol/L Carbon Dioxide (21.6-31.8) mmol/L Anion Gap (4.00-12.00) mmol/L Glucose 108 H (74-99) mg/dL Urine Protein Trace H (Negative) Urine Ketones Trace H (Negative) 07/25/24 Range/Units 04:25 MCH (27.0-32.0) pg MPV (9.5-12.2) fL Eosinophils # (0.04-0.35) 10*3/uL Potassium 3.4 L (3.5-5.5) mmol/L Carbon Dioxide 18.2 L (21.6-31.8) mmol/L Anion Gap 14.80 H (4.00-12.00) mmol/L Glucose (74-99) mg/dL Urine Protein (Negative) Urine Ketones (Negative) Thrombosis Risk Factor Assmnt - DVT/VTE Prophylaxis DVT/VTE Prophylaxis: Pharmacologic Prophylaxis ordered - Choose All That Apply Any of the Below Risk Factors Present?: Yes Other Risk Factors: Yes Each Risk Factor Represents 3 Points: Age 75 years or older Thrombosis Risk Factor Assessment Total Risk Factor Score: 3 Thrombosis Risk Factor Assessment Level: Moderate Risk Assessment and Plan Assessment: Intractable nausea and vomiting. Intermittent episodes usually last about an hour. Hypokalemia replaced. Recent history of TIA with expressive aphasia Hypertension Hyperlipidemia Fibromyalgia Osteoarthritis Prior history of smoking Occasional marijuana use GI DVT prophylaxis PPI and heparin subcu Plan: Patient will be continued on IV hydration with normal saline. Symptomatic management for nausea and vomiting. Continue with PPI. Start back on home blood pressure medications and aspirin and statins. Gastroenterology service was consulted and planning for EGD tomorrow. Continue to follow closely.
[2024-07-26 08:19] LABS: BUN/Creat Ratio 13.44 Ratio (12.00-20.00); Blood Urea Nitrogen 12.1 mg/dL (9.0-27.0); Calcium 8.6 mg/dL (8.7-10.3); Carbon Dioxide 22.5 mmol/L (21.6-31.8); Chloride 108 mmol/L (96-109); Glucose 97 mg/dL (70-110); Potassium 3.8 mmol/L (3.5-5.5); Sodium 140 mmol/L (135-145)
[2024-07-26 13:07] VITALS: TEMP 97.9
[2024-07-26] MEDS ORDERED: LIDOCAINE 1% INJ 10MG/ML (20 ML MDV) ONE (13:30)
[2024-07-26] MEDS ORDERED: PROPOFOL 10 MG/ML 20 ML VIAL IV ONE (13:30)
[2024-07-26] MEDS: IV FLUID CONTINUATION 1,000 ML IV ONE ×2 (13:32→13:42)
--- NOTE | 2024-07-26 13:43 | P.PCN ---
Date of Procedure: 07/26/24 Procedure(s) Performed: BRIEF HISTORY: Patient is a 71-year-old, pleasant, white male scheduled for an upper endoscopy as a part evaluation of intermittent episodes of nausea vomiting for the last 5 years duration. He has these episodes 3-4 times a year but in the last 2 weeks he had 2 episodes each lasting for several hours and resolved.. PROCEDURE PERFORMED: Esophagogastroduodenoscopy with biopsy. PREOPERATIVE DIAGNOSIS: Intermittent episodes of nausea vomiting. IV sedation per anesthesia. PROCEDURE: After informed consent was obtained, the patient was brought into the endoscopy unit. IV sedation was administered by Anesthesia under continuous monitoring. Initially the Olympus GIF-140 video endoscope was inserted into the mouth. Esophagus intubated without any difficulty. It was gradually advanced into the stomach and duodenum and carefully examined. The bulb had mild duodenitis and the second part of the duodenum appeared normal. The scope at this time was withdrawn to the stomach, adequately insufflated with air, and upon careful examination, mucosa of the antrum, and mild gastritis and biopsies were done from this area. Mucosa of body, cardia and the fundus appeared normal. The scope was then withdrawn into the esophagus. Small hiatal hernia noted. The GE junction was located at 39 cm from the incisors. The esophagus appeared normal. There were no erosions or ulcerations seen, biopsies were done from the distal esophagus and the patient tolerated the procedure well. IMPRESSION: 1. Mild antral gastritis and duodenitis. 2. Small hiatal hernia. RECOMMENDATIONS: The findings of this examination were discussed with the patient as well as his family.. He was advised to follow-up with the biopsy results. Continue with Protonix 40 mg daily and follow-up in the office in 3 to 4 weeks. Patient can be discharged home today.
[2024-07-26 16:10] VITALS: RESP 18
[2024-07-26 16:14] VITALS: PULSE 70
[2024-07-26 16:22] VITALS: BP 170/82
--- NOTE | 2024-07-26 16:36 | HP ---
HISTORY AND PHYSICAL CHIEF COMPLAINT: Weakness, nausea, vomiting, and diarrhea. HISTORY OF PRESENT ILLNESS: This gentleman presented to the office with weakness, nausea, and vomiting. He was in the hospital a month or so ago with a stroke with resulting in some expressive aphasia. He was doing a little bit better and then started to have difficulty with nausea, vomiting, some abdominal discomfort, and sometimes difficulty speaking. He has been trying to rehabilitate. He was doing a little bit better than he came into the office the day of admission with nausea, vomiting, dehydration, and extreme weakness. He had lost about 12 pounds in the last 10 days and was not eating at all. He denied any significant neurologic changes, chest pain, abdominal pain, etc. He was sent to the emergency room for further evaluation and was admitted for dehydration and intractable vomiting. REVIEW OF SYSTEMS: Otherwise unremarkable. He had no fever, chills, hematemesis, melena, hematochezia, etc. Past medical history, family history, and personal and social histories are all unchanged from his recent admitting and discharge summaries. PHYSICAL EXAMINATION: VITAL SIGNS: Blood pressure was high at 182/94, pulse was 62, respirations were 16, and temperature was 98.2. GENERAL: Appeared to be quite dehydrated and definitely weaker. He was unstable walking. HEAD, EARS, EYES, NOSE, MOUTH, AND THROAT: Normal except for dry mucous membranes. NECK: Supple. CHEST: Clear. CARDIAC: Normal. ABDOMEN: Soft and nontender without masses. Bowel sounds are heard. EXTREMITIES: Normal. NEUROLOGICAL: He was quite weak, but had no focal neurologic deficits. ASSESSMENT: He was admitted to the hospital with diagnoses: 1. Dehydration. 2. Intractable nausea and vomiting. 3. Recent cerebrovascular accident. 4. Hypertension. PLAN: 1. Bedrest. 2. IV fluids. 3. Rehydrate. 4. Physical therapy. MMODL / IJN: [id number] /
--- NOTE | 2024-07-28 06:28 | DS ---
DISCHARGE SUMMARY CHIEF COMPLAINT: 1. Intractable nausea, vomiting and dehydration. 2. Expressive aphasia. 3. General weakness and debility. HISTORY OF PRESENT ILLNESS AND PHYSICAL EXAMINATION: Details of this man's history and physical can be found in the initial workup. LABORATORY STUDIES: While he is in hospital, he had laboratory studies, details of which can be found in the laboratory section of his chart. COURSE IN THE HOSPITAL: After admission, he was placed on bedrest and started on intravenous fluids and the antiemetics. While he was in a hospital, he was rehydrated and his ambulatory status improved. He was less dizzy. The vomiting stopped. He did not have any further problems with weakness and difficulty speaking. He was still improving. It was felt that he could be discharged on the and go home to outpatient followup. FINAL DIAGNOSES: 1. Intractable nausea, vomiting. 2. Dehydration. 3. Recent cerebrovascular accident. 4. General debility and weakness. 5. Expressive aphasia. OPERATIONS: None. CONSULTATIONS: None. He is improved. MMODL / IJN: [id number] /
== END 2024-07-26 16:40 | disposition home or self-care (01) ==
LOC: EC 13:06 → 6NMEDSUR 15:36
PROVIDERS: ADMIT Family Medicine; ATTEND Family Medicine
DX: E86.0 Dehydration (principal); R53.81 Other malaise; K29.50 Unspecified chronic gastritis without bleeding; K29.80 Duodenitis without bleeding; K44.9 Diaphragmatic hernia without obstruction or gangrene; I69.320 Aphasia following cerebral infarction; E87.6 Hypokalemia; M79.7 Fibromyalgia; M19.90 Unspecified osteoarthritis, unspecified site; I10 Essential (primary) hypertension; E78.5 Hyperlipidemia, unspecified; F41.9 Anxiety disorder, unspecified; F12.90 Cannabis use, unspecified, uncomplicated; Z87.891 Personal history of nicotine dependence; Z79.82 Long term (current) use of aspirin; Z79.899 Other long term (current) drug therapy
CPT/HCPCS: 96376 ×2; 96365; 96372; 96374; 96375; 99285; 36415; 88305; 80053; 80048 ×2; 83690; 83735 ×2; 85025; 81003; 43239; G0378 ×3; J0780; J1644; J2003; J3475; J2704; J2470 ×3